=== PATIENT | male | born 1945 | race Caucasian/White ===

== ENCOUNTER 2016-10-27 09:20 | Emergency (ER) | payer OTHER, MEDICARE ==
[~2016-10-27] VITALS: Ht 177.8 cm; Wt 104.4 kg
[~2016-10-27 09:20] MED LIST: CMDUNK PO; METO-157 PO; ONDA8TAB6 PO; PRLSR20 PO; PROM25TA PO
[2016-10-27 09:22] VITALS: TEMP 36.7; Ht 177.8 cm; Wt 104.4 kg
[2016-10-27 09:54] LABS: BASO % 0.1 %; BASO ABS # 0.01 K/uL (0-0.2); COMPLETE YES; EOS % 0.2 %; HEMATOCRIT 42.5 % (42-52); IG% 0.2 %; LYMPH % 7.7 %; LYMPH ABS # 0.69 K/uL (1.2-3.4); MEAN CELL VOLUME 98.2 fL (80-100); MEAN CORPUSCULAR HGB CONC 33.6 g/dl (32-36); MEAN PLATELET VOLUME 10.4 fL (7.4-10.4); MONO % 7.5 %; NEUT % 84.3 %; PLATELET COUNT 225 K/uL (130-400); RED BLOOD COUNT 4.33 M/uL (4.7-6.1); WHITE BLOOD COUNT 8.95 K/uL (4.8-10.8)
[2016-10-27] MEDS ORDERED: SUCR1TAB29 PO (10:01)
[2016-10-27] MEDS ORDERED: BACL10TA PO (10:01)
[2016-10-27] MEDS ORDERED: METH4PAK PO (10:01)
[2016-10-27] MEDS ORDERED: TRAM-10 PO (10:01)
--- NOTE | 2016-10-27 10:23 | DIAGNOSTIC IMAGING REPORT ---
FLUOROSCOPIC IMAGES OF THE LUMBAR SPINE CLINICAL HISTORY: Lower back pain. COMPARISON: None FLUOROSCOPY TIME: FINDINGS: Abdominal surgical clips are incidentally noted. The bowel gas pattern is normal. There is a moderate amount stool within the ascending and transverse colon. Note is made of a moderate compression fracture of the superior endplate of L3 with 40% loss of vertebral body height anteriorly. This fracture is age indeterminate. No additional compression fractures are present. Moderate multilevel degenerative disc disease and facet arthrosis of the lumbar spine is present. There is minimal loss of height of the superior endplate of L4. IMPRESSION: 1. Age indeterminate moderate compression fracture of L3 with 40% loss of vertebral body height. 2. Moderate multilevel degenerative disc disease and facet arthrosis. 3. Minimal loss of height of the superior endplate of L4. Electronically signed by: Serge Rivera M.D. 10/27/2016 10:21 AM Dictated Date/Time: 10/27/2016 10:19 AM
[2016-10-27 10:24] LABS: BUN/CREATININE RATIO 19.8 (10-20); CALCIUM 8.8 mg/dl (8.5-10.1); CREATININE 1.1 mg/dl (0.60-1.40)
[2016-10-27 10:38] LABS: URINE APPEARANCE CLEAR (CLEAR); URINE BILIRUBIN NEG (NEG); URINE COLOR DK YELLOW; URINE NITRITE NEG (NEG); URINE SPECIFIC GRAVITY 1.027 (1.000-1.030); UROBILINOGEN NEG (NEG); ZZUR CULT IF INDIC CLEAN CATCH NO
[2016-10-27 10:40] LABS: MANUAL MICROSCOPIC REQUIRED? NO; REVIEW REQ? NO
--- NOTE | 2016-10-27 11:28 | DIAGNOSTIC IMAGING REPORT ---
RENAL ULTRASOUND CLINICAL HISTORY: Right flank pain. COMPARISON STUDY: None. TECHNIQUE: Sonography of the kidneys and the urinary bladder was performed. FINDINGS: The right kidney measures 13.3 x 7.2 x 6.8 cm and the left measures 13.2 x 6.2 x 5.6 cm. There is suspected mild right hydronephrosis. Parapelvic cysts could appear similar but are considered less likely. There is a probable 7 mm calculus within lower pole of the right kidney. No ureteral calculi are identified although these may be occult by sonography. There are tubular anechoic structures with the left renal sinus which favor parapelvic cysts. Neither ureteral jet was identified. IMPRESSION: 1. Probable mild right hydronephrosis. Parapelvic cysts could appear similar but are considered less likely. 2. Suspected left-sided parapelvic cysts. 3. Probable 7 mm right renal calculus. Electronically signed by: Serge Rivera M.D. 10/27/2016 11:27 AM Dictated Date/Time: 10/27/2016 11:24 AM
--- NOTE | 2016-10-27 12:15 | DIAGNOSTIC IMAGING REPORT ---
CT OF THE ABDOMEN AND PELVIS WITHOUT CONTRAST CLINICAL HISTORY: Right flank pain. L3 fracture COMPARISON STUDY: Renal ultrasound performed earlier today. TECHNIQUE: Axial images of the abdomen and pelvis were obtained without IV contrast. Images were reviewed in the axial, sagittal, and coronal planes. FINDINGS: Lung bases are clear. Pneumobilia is noted. This is related to Whipple procedure. Expected postoperative findings are noted but are suboptimally assessed on this unenhanced exam. Unenhanced images of the spleen and adrenal glands are normal. There is moderate right hydroureteronephrosis due to a 7 mm calculus at the right ureterovesical junction. A few calculi within the lower pole of the right kidney measure up to 9 mm. There are left-sided parapelvic cysts. There is no evidence for a bowel obstruction. Of note, there are multiple enlarged pelvic lymph nodes, including a left iliac node that measures 3.9 x 3.2 cm. An index right iliac node measures 1.8 cm in short axis diameter. A left pelvic sidewall lymph node measures 4.4 x 2.9 cm. No suspicious osseous lesions are identified. There is no evidence for a bowel obstruction. IMPRESSION: 1. 7 mm right ureterovesical junction calculus which results in moderate right hydroureteronephrosis. Right-sided nephrolithiasis. 2. Numerous moderately enlarged pelvic lymph nodes which are highly suggestive of a neoplastic process. Differential considerations include metastatic disease such as prostate carcinoma. Lymphoma could appear similar. 3. Expected findings following Whipple procedure. Pneumobilia. 4. Moderate L3 compression fracture which is likely old. Electronically signed by: Serge Rivera M.D. 10/27/2016 12:13 PM Dictated Date/Time: 10/27/2016 11:53 AM
[2016-10-27] MEDS ORDERED: CIPROFLOXACIN 500 MG TAB PO STA (13:14)
[2016-10-27] MEDS ORDERED: TAMS0.4C38 PO (13:19)
[2016-10-27] MEDS ORDERED: OXYC1TAB3 PO ×2 (13:19→13:50)
[2016-10-27] MEDS ORDERED: CIPR-255 PO (13:19)
[2016-10-27 13:37] VITALS: BP 138/82; PULSE 67; O2SAT 94
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
== END 2016-10-27 13:38 | disposition home or self-care (01) ==
LOC: C.EDB 09:22
DX: N20.0 Calculus of kidney (principal); Z85.07 Personal history of malignant neoplasm of pancreas; Z87.891 Personal history of nicotine dependence; Z79.899 Other long term (current) drug therapy; Z88.6 Allergy status to analgesic agent; Z88.8 Allergy status to other drugs, medicaments and biological substances; Z83.3 Family history of diabetes mellitus; Z80.9 Family history of malignant neoplasm, unspecified; Z83.79 Family history of other diseases of the digestive system

== ENCOUNTER 2020-12-27 00:31 | Inpatient (IN) ==
[2020-12-27] MEDS ORDERED: FUROSEMIDE 40 MG/4 ML VIAL IV STA (00:51)
[2020-12-27 01:39] LABS: Partial Thromboplastin Ratio 1.1; Partial Thromboplastin Time 30.2 Seconds (21.0-31.0); Prothrombin Time 10.5 Seconds (9.0-12.0)
[2020-12-27 01:45] LABS: Appearance Urine Clear (Clear); Bacteria Urine Automated Negative (Negative); Bilirubin Urine Negative (Negative); Blood Urine 3+ (Negative); Cast Urine Automated 0 /lpf (0-5); Color Urine Yellow; Glucose Urine UA 3+ (Negative); Ketones Urine 1+ (Negative); Leukocyte Esterase Urine Negative (Negative); Nitrite Urine Negative (Negative); Protein Urine Negative (Negative); RBC Urine Automated >30 /hpf (0-4); Specific Gravity Urine 1.022 (1.000-1.030); Urobilinogen Urine Negative (Negative); pH Urine 6.5 (4.5-7.5)
[2020-12-27 01:46] LABS: Hematocrit (blood only) 42.4 % (42-52); Hemoglobin 14.2 g/dL (14.0-18.0); Mean Corpuscular Hemoglobin 33.3 pg (25-34); Mean Corpuscular Hgb Conc 33.5 g/dL (32-36); Mean Corpuscular Volume 99.3 fL (80-100); Mean Platelet Volume 12.8 fL (7.4-10.4); Platelet Count 80 K/uL (130-400); RDW Coefficient of Variation 15.3 % (11.5-14.5); RDW Standard Deviation 55.9 fL (36.4-46.3); Red Blood Count 4.27 M/uL (4.7-6.1); White Blood Count 3.38 K/uL (4.8-10.8)
[2020-12-27 01:47] LABS: Alanine Aminotransferase 41 U/L (12-78); Albumin Level 3.6 gm/dl (3.4-5.0); Aspartate Aminotransferase 38 U/L (15-37); BUN Creatinine Ratio 15.8 (10-20); Blood Urea Nitrogen 15 mg/dl (7-18); Calcium 8.5 mg/dl (8.5-10.1); Carbon Dioxide 28 mmol/L (21-32); Chloride 106 mmol/L (98-107); Creatinine Clr Calc Pharmacy 84.7 ml/min; Est GFR (African American) 94.6 ml/min; Est GFR (Non-African American) 81.6 ml/min; Glucose 149 mg/dl (70-99); Magnesium 1.9 mg/dl (1.8-2.4); Potassium 3.8 mmol/L (3.5-5.1); Sodium 138 mmol/L (136-145)
[2020-12-27 01:49] LABS: Albumin Globulin Ratio 1.1 (0.9-2); Alkaline Phosphatase 205 U/L (45-117); Bilirubin,Total 0.7 mg/dl (0.2-1); Globulin 3.2 gm/dl (2.5-4.0); NT Pro B Type Natriuretic Pept 665 pg/ml (0-900); Total Protein 6.8 gm/dl (6.4-8.2); Troponin I < 0.015 ng/ml (0-0.045)
[2020-12-27 01:50] LABS: Basophils # (auto) 0.02 K/uL (0-0.2); Basophils % (auto) 0.6 %; Dohle Bodies 1+; Echinocytes 1+; Eosinophils # (auto) 0.11 K/uL (0-0.5); Eosinophils % (auto) 3.3 %; Immature Granulocytes # (auto) 0.01 K/uL (0.00-0.02); Immature Granulocytes % (auto) 0.3 %; Lymphocytes # (auto) 0.45 K/uL (1.2-3.4); Lymphocytes % (auto) 13.3 %; Monocytes % (auto) 5.9 %; Neutrophils # (auto) 2.59 K/uL (1.4-6.5); Neutrophils % (auto) 76.6 %; Ovalocytes 1+; Platelet Estimate Decreased (Normal)
--- NOTE | 2020-12-27 05:53 | Emergency Department Note ---
History of Present Illness General Chief complaint: Sinus Congestion/Pressure Stated complaint: SINUS CONGESTION INTO CHEST Time Seen by Provider: 12/27/20 00:38 Source: patient, family (Son at the bedside) and RN notes reviewed Mode of arrival: ambulatory Limitations: no limitations History of Present Illness Provider complaint: Sinus pressure, cough This patient is a 75-year-old male who presents emergency department with complaints of sinus congestion, cough and shortness of breath. Patient states he believes he has an upper respiratory infection that is causing his symptoms due to postnasal drip. He denies any fever or chest pain. He admits to sputum production. Patient is anticoagulated on Eliquis due to history of paroxysmal atrial fibrillation. He does have a history of an aortic valve replacement and takes torsemide daily. Patient denies missing any of his medications. Home Medications Medication Instructions Recorded Confirmed Type metoclopramide HCl 10 mg tablet 10 mg PO DAILY PRN 01/20/19 12/27/20 History metoprolol tartrate 25 mg tablet 25 mg PO BID 01/20/19 12/27/20 History omeprazole 20 mg capsule,delayed 20 mg PO DAILY 01/20/19 12/27/20 History release acetaminophen 500 mg tablet 500 mg PO Q4H PRN MDD 3 GRAMS/24 12/27/20 12/27/20 History (Tylenol Extra Strength) HOURS apixaban 5 mg tablet (Eliquis) 5 mg PO BID 12/27/20 12/27/20 History calcium carb,cit ER 600 mg-vit D3 1 tab PO DAILY 12/27/20 12/27/20 History 12.5 mcg (500 unit) tablet,ext.rel (Citracal-D3 Slow Release) chlorhexidine gluconate 0.12 % 15 ml PO BID 12/27/20 12/27/20 History mouthwash folic acid 1 mg tablet 1 mg PO DAILY 12/27/20 12/27/20 History glucosamine sulfate 500 mg tablet 1,000 mg PO DAILY 12/27/20 12/27/20 History (Glucosamine) lenalidomide 10 mg capsule 10 mg PO DAILY 12/27/20 12/27/20 History (Revlimid) metformin 500 mg tablet,extended 1,000 mg PO DAILY 12/27/20 12/27/20 History release 24 hr pentoxifylline 400 mg 400 mg PO BID 12/27/20 12/27/20 History tablet,extended release spironolactone 25 mg tablet 25 mg PO DAILY 12/27/20 12/27/20 History torsemide 10 mg tablet 20 mg PO DAILY 12/27/20 12/27/20 History tramadol 50 mg tablet 50 mg PO Q6H PRN 12/27/20 12/27/20 History vitamin E 200 unit capsule 400 unit PO BID 12/27/20 12/27/20 History doxycycline hyclate 100 mg capsule 100 mg PO BID #10 cap 12/29/20 Rx fluticasone propionate 50 2 spray NA DAILY #16 g 12/29/20 Rx mcg/actuation nasal spray,suspension guaifenesin 600 mg tablet, 1,200 mg PO Q12 #14 tab 12/29/20 Rx extended release 12 hr (Mucinex) ipratropium bromide 0.02 % 0.5 mg INHALATION TID 7 Days #52.5 12/29/20 Rx solution for inhalation ml levalbuterol HCl 1.25 mg/0.5 mL 1.25 mg INHALATION TID 7 Days 12/29/20 Rx solution for nebulization #10.5 ea Allergies Allergy/AdvReac Type Severity Reaction Status Date / Time aspirin Allergy Severe HIVES Unverified 01/20/19 14:42 NSAIDS (Non-Steroidal Allergy Severe HIVES Unverified 01/20/19 14:42 Anti-Inflamma Iodine and Iodide Containing AdvReac Mild Verified 01/20/19 14:42 Produc Past Med/Surg History Medical History (Updated 01/03/21 @ 21:14 by Ariane Tran MD) Compression fracture of L3 lumbar vertebra ASHBY (dyspnea on exertion) Enlarged lymph nodes Hemolytic anemia Kidney stone Multiple myeloma PAF (paroxysmal atrial fibrillation) Pancreatic cancer Peripheral edema Tachy-holly syndrome URI (upper respiratory infection) Surgical History (Updated 01/03/21 @ 21:09 by Ariane Tran MD) S/P AVR Family History Other Family history non-contributory Social History Smoking Status: Former smoker Second Hand Exposure: No; Hx Alcohol Use: No Hx Substance Use: No Preferred Language: [place] Communication Ability: Effective Orthotic Aide Required: No Beliefs That Will Affect Care: Yazidism marital status: Current Living Situation: Spouse Feels Safe at Home: Yes Assistive Devices: None Review of Systems See HPI for pertinent positives & negatives. and A total of 10 systems reviewed and were otherwise negative Physical Exam Vital Signs Vital Signs - 24 hr 12/27/20 00:32 12/27/20 01:40 12/27/20 04:24 Temperature 37.1 C Temperature Source Temporal Artery Scan Pulse Rate 86 Respiratory Rate 18 Blood Pressure 143/75 H Blood Pressure Mean 97 Pulse Oximetry 92 96 95 Oxygen Delivery Method Room Air Room Air Room Air Sepsis Recent Fever Within 48 Hours No Sepsis New/Unexplained Change in Mental Status No Sepsis Action Taken by Nursing No Action Required Vital signs reviewed. General: Generally well-appearing 75-year-old male sitting up in the bedside, in no significant distress. HEENT: No scleral icterus, PERRLA, neck supple. Atraumatic. Cardiovascular: Regular rate and rhythm, systolic ejection murmur, occasional ectopy. Pulmonary: Clear to auscultation bilaterally, moist cough with slightly increased work of breathing. Abdomen: Soft, nontender, nondistended, positive bowel sounds. Musculoskeletal: Atraumatic, mild peripheral edema. Neurologic: Patient awake alert and oriented x 3 Skin: Warm, dry, no rash Course Administered Medications Discontinued Medications Acetaminophen (Acetaminophen 325 Mg Tab) 650 mg PO Q4H PRN PRN Reason: Pain or Fever Stop: 01/26/21 07:38 Last Admin: 12/27/20 18:35 Dose: 650 mg Documented by: [id number] Apixaban (Apixaban 5 Mg Tablet) 5 mg PO BID SONYA Stop: 01/26/21 08:59 Last Admin: 12/28/20 07:39 Dose: 5 mg Documented by: [id number] Admin: 12/27/20 20:01 Dose: 5 mg Documented by: [id number] Admin: 12/27/20 08:44 Dose: 5 mg Documented by: [id number] Bupivacaine HCl (Bupivacaine 0.25% 30 Ml Vial) Confirm Administered Dose 30 ml .ROUTE .STK-MED ONE Stop: 12/29/20 06:52 Last Admin: 12/29/20 10:15 Dose: 30 ml Documented by: [id number] Cefazolin Sodium (Cefazolin 250 Mg/Ml 1 Gm Vial) Confirm Administered Dose 2,000 mg .ROUTE .STK-MED ONE Stop: 12/29/20 08:54 Last Admin: 12/29/20 10:15 Dose: 2,000 mg Documented by: [id number] Chlorhexidine Gluconate (Chlorhexidine Gluconate 0.12% 480 Ml) 15 ml MT BID [facility] Stop: 01/26/21 08:59 Last Admin: 12/29/20 11:19 Dose: 15 ml Documented by: [id number] Admin: 12/28/20 20:59 Dose: 15 ml Documented by: [id number] Admin: 12/28/20 07:47 Dose: 15 ml Documented by: [id number] Admin: 12/27/20 20:00 Dose: 15 ml Documented by: [id number] Admin: 12/27/20 08:42 Dose: 15 ml Documented by: [id number] Diphenhydramine HCl (Diphenhydramine Capsule 25 Mg Cap) 50 mg PO PREOP [facility] Stop: 12/29/20 18:00 Last Admin: 12/29/20 07:58 Dose: 50 mg Documented by: [id number] Doxycycline Hyclate (Doxycycline Hyclate 100 Mg Cap) 100 mg PO BID [facility] Stop: 01/06/21 08:59 Last Admin: 12/29/20 11:20 Dose: 100 mg Documented by: [id number] Admin: 12/28/20 21:27 Dose: 100 mg Documented by: [id number] Admin: 12/28/20 07:41 Dose: 100 mg Documented by: [id number] Admin: 12/27/20 20:02 Dose: 100 mg Documented by: [id number] Admin: 12/27/20 08:44 Dose: 100 mg Documented by: [id number] Fentanyl Citrate (Fentanyl Citrate 100 Mcg/2 Ml Vial) Confirm Administered Dose 100 mcg .ROUTE .STK-MED ONE Stop: 12/29/20 08:54 Last Increment: 12/29/20 10:15 Dose: 75 mcg Documented by: [id number] Fluticasone Propionate (Fluticasone Propionate Na Spr 16 Gm Btl) 2 sprays NA DAILY [facility] Stop: 01/26/21 15:14 Last Admin: 12/29/20 11:21 Dose: 2 sprays Documented by: [id number] Admin: 12/28/20 07:46 Dose: 2 sprays Documented by: [id number] Admin: 12/27/20 16:12 Dose: 2 sprays Documented by: [id number] Folic Acid (Folic Acid 1 Mg Tab) 1 mg PO DAILY [facility] Stop: 01/26/21 08:59 Last Admin: 12/29/20 11:22 Dose: 1 mg Documented by: [id number] Admin: 12/28/20 07:43 Dose: 1 mg Documented by: [id number] Admin: 12/27/20 08:44 Dose: 1 mg Documented by: [id number] Furosemide (Furosemide 40 Mg/4 Ml Vial) 40 mg IV NOW STA Stop: 12/27/20 00:52 Last Admin: 12/27/20 01:19 Dose: 40 mg Documented by: [id number] Glucosamine Sulfate (Glucosamine Sulfate 500 Mg Cap) 1,000 mg PO DAILY [facility] Stop: 01/26/21 08:59 Last Admin: 12/29/20 11:22 Dose: 1,000 mg Documented by: [id number] Admin: 12/28/20 07:43 Dose: 1,000 mg Documented by: [id number] Admin: 12/27/20 08:43 Dose: 1,000 mg Documented by: [id number] Guaifenesin (Guaifenesin 600 Mg Tabcr) 1,200 mg PO Q12 [facility] Stop: 01/26/21 20:59 Last Admin: 12/29/20 11:23 Dose: 1,200 mg Documented by: [id number] Admin: 12/28/20 21:27 Dose: 1,200 mg Documented by: [id number] Admin: 12/28/20 07:41 Dose: 1,200 mg Documented by: [id number] Admin: 12/27/20 20:02 Dose: 1,200 mg Documented by: [id number] Furosemide 40 mg/ Syringe 4 mls @ 4 mls/min IV DAILY [facility] Stop: 01/26/21 08:59 Last Admin: 12/28/20 07:46 Dose: 4 mls/min Documented by: [id number] Admin: 12/27/20 08:48 Dose: 4 mls/min Documented by: [id number] Ceftriaxone Sodium 2,000 mg/ (Dextrose) 70 mls @ 100 mls/hr IV Q24H SONYA; Protocol Stop: 01/04/21 09:59 Last Infusion: 12/29/20 12:16 Dose: 0 mls/hr Documented by: [id number] Admin: 12/29/20 11:26 Dose: 100 mls/hr Documented by: [id number] Infusion: 12/28/20 11:02 Dose: 0 mls/hr Documented by: [id number] Admin: 12/28/20 10:20 Dose: 100 mls/hr Documented by: [id number] Insulin Aspart (Insulin Aspart 100 Units/Ml 3 Ml Pen) 0 units SC ACHS [facility] Stop: 01/26/21 07:59 Last Admin: 12/28/20 22:59 Dose: Not Given Documented by: [id number] Admin: 12/28/20 08:50 Dose: 3 units Documented by: [id number] Cosigned by: [id number] Admin: 12/27/20 20:56 Dose: 1 units Documented by: [id number] Cosigned by: [id number] Admin: 12/27/20 17:08 Dose: 4 units Documented by: [id number] Cosigned by: [id number] Admin: 12/27/20 12:13 Dose: 2 units Documented by: [id number] Cosigned by: [id number] Admin: 12/27/20 08:43 Dose: 4 units Documented by: [id number] Cosigned by: [id number] Insulin Aspart (Insulin Aspart 100 Units/Ml 3 Ml Pen) 0 units SC [facility] Stop: 12/29/20 23:59 Last Admin: 12/29/20 12:33 Dose: 11 units Documented by: [id number] Cosigned by: [id number] Admin: 12/29/20 07:59 Dose: 3 units Documented by: [id number] Cosigned by: [id number] Admin: 12/28/20 20:58 Dose: 6 units Documented by: [id number] Cosigned by: [id number] Admin: 12/28/20 16:54 Dose: Not Given Documented by: [id number] Cosigned by: [id number] Insulin Aspart (Insulin Aspart 100 Units/Ml 3 Ml Pen) 0 units SC .EXTRA DOSE ONE Stop: 12/28/20 11:31 Last Admin: 12/28/20 12:47 Dose: 12 units Documented by: [id number] Cosigned by: [id number] Insulin Aspart (Insulin Aspart 100 Units/Ml 3 Ml Pen) 0 units SC 0000,0400 [facility] Stop: 12/29/20 04:01 Last Admin: 12/29/20 04:10 Dose: 2 units Documented by: [id number] Cosigned by: [id number] Admin: 12/29/20 00:17 Dose: 6 units Documented by: [id number] Cosigned by: [id number] Insulin Glargine (Insulin Glargine Solostar 100 Units/Ml 3 Ml Pen) 8 units SC .EXTRA DOSE ONE Stop: 12/28/20 11:31 Last Admin: 12/28/20 12:54 Dose: 8 units Documented by: [id number] Cosigned by: [id number] Insulin Glargine (Insulin Glargine Solostar 100 Units/Ml 3 Ml Pen) 22 units SC ONE ONE Stop: 12/28/20 18:01 Last Admin: 12/28/20 18:04 Dose: 22 units Documented by: [id number] Cosigned by: [id number] Insulin Glargine (Insulin Glargine Solostar 100 Units/Ml 3 Ml Pen) 15 units SC BID [facility] Stop: 01/28/21 08:59 Last Admin: 12/29/20 08:00 Dose: 15 units Documented by: [id number] Cosigned by: [id number] Ipratropium [place] (Ipratropium [place] Neb Soln 0.02% 2.5 Ml Vial) 0.5 mg INH Q6R [facility] Stop: 01/26/21 15:14 Last Admin: 12/29/20 12:59 Dose: 0.5 mg Documented by: [id number] Admin: 12/29/20 07:00 Dose: 0.5 mg Documented by: [id number] Admin: 12/29/20 01:15 Dose: 0.5 mg Documented by: [id number] Admin: 12/28/20 18:58 Dose: 0.5 mg Documented by: [id number] Admin: 12/28/20 13:12 Dose: 0.5 mg Documented by: [id number] Admin: 12/28/20 07:08 Dose: 0.5 mg Documented by: [id number] Admin: 12/28/20 01:10 Dose: 0.5 mg Documented by: [id number] Admin: 12/27/20 18:07 Dose: 0.5 mg Documented by: [id number] Admin: 12/27/20 15:40 Dose: 0.5 mg Documented by: [id number] Lenalidomide (Lenalidomide 10 Mg Cap) 1 ea PO DAILY [facility]ON[facility]; Protocol Stop: 01/26/21 08:59 Last Admin: 12/29/20 11:27 Dose: 1 ea Documented by: [id number] Cosigned by: [id number] Admin: 12/28/20 10:45 Dose: 1 ea Documented by: [id number] Cosigned by: [id number] Admin: 12/27/20 09:03 Dose: 1 ea Documented by: [id number] Cosigned by: [id number] Levalbuterol HCl (Levalbuterol 1.25mg/0.5ml Neb) 1.25 mg INH Q6R [facility] Stop: 01/26/21 15:14 Last Admin: 12/29/20 12:59 Dose: 1.25 mg Documented by: [id number] Admin: 12/29/20 07:00 Dose: 1.25 mg Documented by: [id number] Admin: 12/29/20 01:15 Dose: 1.25 mg Documented by: [id number] Admin: 12/28/20 18:58 Dose: 1.25 mg Documented by: [id number] Admin: 12/28/20 13:13 Dose: 1.25 mg Documented by: [id number] Admin: 12/28/20 07:08 Dose: 1.25 mg Documented by: [id number] Admin: 12/28/20 01:10 Dose: 1.25 mg Documented by: [id number] Admin: 12/27/20 18:07 Dose: 1.25 mg Documented by: [id number] Admin: 12/27/20 15:40 Dose: 1.25 mg Documented by: [id number] Lidocaine HCl (Lidocaine 1% Local 20 Ml Vial) Confirm Administered Dose 20 ml .ROUTE .STK-MED ONE Stop: 12/29/20 06:52 Last Admin: 12/29/20 10:15 Dose: 20 ml Documented by: [id number] Metoprolol Tartrate (Metoprolol Tartrate 25 Mg Tab) 25 mg PO BID [facility] Stop: 01/26/21 08:59 Last Admin: 12/27/20 08:43 Dose: 25 mg Documented by: [id number] Midazolam HCl (Midazolam Hcl 5 Mg/Ml 1 Ml Vial) Confirm Administered Dose 5 mg .ROUTE .STK-MED ONE Stop: 12/29/20 08:53 Last Increment: 12/29/20 10:15 Dose: 3 mg Documented by: [id number] Multivitamins/Minerals (Calcium 600mg + Vit D 400 Iu Tab) 1 tab PO DAILY [facility] Stop: 01/26/21 08:59 Last Admin: 12/29/20 11:18 Dose: 1 tab Documented by: [id number] Admin: 12/28/20 07:44 Dose: 1 tab Documented by: [id number] Admin: 12/27/20 08:44 Dose: 1 tab Documented by: [id number] Pantoprazole Sodium (Pantoprazole 40 Mg Tab) 40 mg PO DAILY [facility]; Protocol Stop: 01/26/21 08:59 Last Admin: 12/29/20 11:23 Dose: 40 mg Documented by: [id number] Admin: 12/28/20 07:44 Dose: 40 mg Documented by: [id number] Admin: 12/27/20 08:43 Dose: 40 mg Documented by: [id number] Pentoxifylline (Pentoxifylline 400mg Ext Rel Tab) 400 mg PO BID [facility] Stop: 01/26/21 08:59 Last Admin: 12/29/20 11:23 Dose: 400 mg Documented by: [id number] Admin: 12/28/20 21:28 Dose: 400 mg Documented by: [id number] Admin: 12/28/20 07:42 Dose: 400 mg Documented by: [id number] Admin: 12/27/20 20:02 Dose: 400 mg Documented by: [id number] Admin: 12/27/20 08:43 Dose: 400 mg Documented by: [id number] Potassium Chloride (Potassium Chloride Crtab 20 Meq Tabcr) 40 meq PO NOW STA Stop: 12/27/20 23:52 Last Admin: 12/28/20 00:57 Dose: 40 meq Documented by: [id number] Potassium Chloride (Potassium Chloride Crtab 20 Meq Tabcr) 40 meq PO NOW STA Stop: 12/28/20 10:23 Last Admin: 12/28/20 10:52 Dose: 40 meq Documented by: [id number] Prednisone (Prednisone 50 Mg Tab) 50 mg PO 1800 [facility] Stop: 12/28/20 18:01 Last Admin: 12/28/20 18:04 Dose: 50 mg Documented by: [id number] Prednisone (Prednisone 50 Mg Tab) 50 mg PO Q8H [facility] Stop: 12/29/20 10:01 Last Admin: 12/29/20 11:24 Dose: 50 mg Documented by: [id number] Admin: 12/29/20 02:17 Dose: 50 mg Documented by: [id number] Sodium Chloride (Sodium Chloride 0.9% Inj 10 Ml Vial) Confirm Administered Dose 20 ml .ROUTE .STK-MED ONE Stop: 12/29/20 09:47 Last Admin: 12/29/20 10:15 Dose: 20 ml Documented by: [id number] Spironolactone (Spironolactone 25 Mg Tab) 25 mg PO DAILY [facility] Stop: 01/26/21 08:59 Last Admin: 12/29/20 11:23 Dose: 25 mg Documented by: [id number] Admin: 12/28/20 07:45 Dose: 25 mg Documented by: [id number] Admin: 12/27/20 08:43 Dose: 25 mg Documented by: [id number] Sterile Water (Water, Sterile For Inj 10 Ml Vial) Confirm Administered Dose 10 ml .ROUTE .STK-MED ONE Stop: 12/29/20 06:52 Last Admin: 12/29/20 10:15 Dose: 10 ml Documented by: [id number] Torsemide (Torsemide 10 Mg Tab) 20 mg PO QAM [facility] Stop: 01/27/21 08:59 Last Admin: 12/29/20 11:25 Dose: 20 mg Documented by: [id number] Admin: 12/28/20 10:45 Dose: 20 mg Documented by: [id number] Vancomycin HCl (Vancomycin Hcl 1000mg/20ml Vial) Confirm Administered Dose 50 mg .ROUTE .STK-MED ONE Stop: 12/29/20 06:52 Last Admin: 12/29/20 10:15 Dose: 50 mg Documented by: [id number] Vancomycin HCl (Vancomycin Hcl 1000mg/20ml Vial) Confirm Administered Dose 50 mg .ROUTE .STK-MED ONE Stop: 12/29/20 09:47 Last Admin: 12/29/20 10:15 Dose: 50 mg Documented by: [id number] Vitamin E (Tocopheryl, Dl-Alpha 100 Units Cap) 400 units PO BID [facility] Stop: 01/26/21 08:59 Last Admin: 12/29/20 11:19 Dose: 400 units Documented by: [id number] Admin: 12/28/20 21:27 Dose: 400 units Documented by: [id number] Admin: 12/28/20 07:40 Dose: 400 units Documented by: [id number] Admin: 12/27/20 20:01 Dose: 400 units Documented by: [id number] Admin: 12/27/20 08:43 Dose: 400 units Documented by: [id number] Medical Decision Making Differential Diagnosis Reactive airway disease, pneumonia, pneumothorax, COPD, CHF, infections, cardiac ischemia, pulmonary embolism, musculoskeletal, gastrointestinal, as well as ot her pathologies. Medical Records Attestation: I reviewed the patient's medical records. Home Medications Current Medication List: was personally reviewed by me Laboratory Data Attestation: I reviewed the patient's lab results. Result diagrams: 12/29/20 06:15 12/29/20 06:15 Lab Results 12/27/20 12/27/20 12/27/20 Range/Units 01:13 01:13 01:13 WBC 3.38 L (4.8-10.8) K/uL RBC 4.27 L (4.7-6.1) M/uL Hgb 14.2 (14.0-18.0) g/dL Hct 42.4 (42-52) % MCV 99.3 (80-100) fL MCH 33.3 (25-34) pg MCHC 33.5 (32-36) g/dL RDW Std Deviation 55.9 H (36.4-46.3) fL RDW Coeff of Jim 15.3 H (11.5-14.5) % Plt Count 80 L (130-400) K/uL MPV 12.8 H (7.4-10.4) fL Immature Gran % (Auto) 0.3 % Neut % (Auto) 76.6 % Lymph % (Auto) 13.3 % Putnam % (Auto) 5.9 % Eos % (Auto) 3.3 % Baso % (Auto) 0.6 % Neut # (Auto) 2.59 (1.4-6.5) K/uL Lymph # (Auto) 0.45 L (1.2-3.4) K/uL [place] # (Auto) 0.20 (0.11-0.59) K/uL Eos # (Auto) 0.11 (0-0.5) K/uL Baso # (Auto) 0.02 (0-0.2) K/uL Immature Gran # (Auto) 0.01 (0.00-0.02) K/uL Dohle Bodies 1+ Platelet Estimate Decreased L (Normal) Ovalocytes 1+ Echinocytes 1+ PT 10.5 (9.0-12.0) Seconds INR 1.0 (0.9-1.1) APTT 30.2 (21.0-31.0) Seconds PTT Ratio 1.1 Sodium 138 (136-145) mmol/L Potassium 3.8 (3.5-5.1) mmol/L Chloride 106 (98-107) mmol/L Carbon Dioxide 28 (21-32) mmol/L Anion Gap 4.0 (3-11) BUN 15 (7-18) mg/dl Creatinine 0.92 (0.6-1.4) mg/dl Est Cr Clr Drug Dosing 84.7 ml/min Est GFR ( Amer) 94.6 ml/min Est GFR (Non-Af Amer) 81.6 ml/min BUN/Creatinine Ratio 15.8 (10-20) Glucose 149 H (70-99) mg/dl Calcium 8.5 (8.5-10.1) mg/dl Magnesium 1.9 (1.8-2.4) mg/dl Total Bilirubin 0.7 (0.2-1) mg/dl AST 38 H (15-37) U/L ALT 41 (12-78) U/L Alkaline Phosphatase 205 H (45-117) U/L Troponin I < 0.015 (0-0.045) ng/ml NT-Pro-B Natriuret Pep 665 (0-900) pg/ml Total Protein 6.8 (6.4-8.2) gm/dl Albumin 3.6 (3.4-5.0) gm/dl Globulin 3.2 (2.5-4.0) gm/dl Albumin/Globulin Ratio 1.1 (0.9-2) Specimen Hemolysis Urine Color Urine Appearance (Clear) Urine pH (4.5-7.5) Ur Specific [place] (1.000-1.030) Urine Protein (Negative) Urine Glucose (UA) (Negative) Urine Ketones (Negative) Urine Blood (Negative) Urine Nitrite (Negative) Urine Bilirubin (Negative) Urine Urobilinogen (Negative) Ur Leukocyte Esterase (Negative) Urine WBC (Auto) (0-5) /hpf Urine RBC (Auto) (0-4) /hpf U Hyaline Cast (Auto) (0-5) /lpf U Epithel Cells (Auto) (0-5) /lpf Urine Bacteria (Auto) (Negative) COVID-19 Eval Order SARS-CoV-2 (PCR) (Negative) RSV (Molecular) (Negative) 12/27/20 12/27/20 12/27/20 Range/Units 01:13 01:13 01:13 WBC (4.8-10.8) K/uL RBC (4.7-6.1) M/uL Hgb (14.0-18.0) g/dL Hct (42-52) % MCV (80-100) fL MCH (25-34) pg MCHC (32-36) g/dL RDW Std Deviation (36.4-46.3) fL RDW Coeff of Jim (11.5-14.5) % Plt Count (130-400) K/uL MPV (7.4-10.4) fL Immature Gran % (Auto) % Neut % (Auto) % Lymph % (Auto) % [place] % (Auto) % Eos % (Auto) % Baso % (Auto) % Neut # (Auto) (1.4-6.5) K/uL Lymph # (Auto) (1.2-3.4) K/uL [place] # (Auto) (0.11-0.59) K/uL Eos # (Auto) (0-0.5) K/uL Baso # (Auto) (0-0.2) K/uL Immature Gran # (Auto) (0.00-0.02) K/uL Dohle Bodies Platelet Estimate (Normal) Ovalocytes Echinocytes PT (9.0-12.0) Seconds INR (0.9-1.1) APTT (21.0-31.0) Seconds PTT Ratio Sodium (136-145) mmol/L Potassium (3.5-5.1) mmol/L Chloride (98-107) mmol/L Carbon Dioxide (21-32) mmol/L Anion Gap (3-11) BUN (7-18) mg/dl Creatinine (0.6-1.4) mg/dl Est Cr Clr Drug Dosing ml/min Est GFR ( Amer) ml/min Est GFR (Non-Af Amer) ml/min BUN/Creatinine Ratio (10-20) Glucose (70-99) mg/dl Calcium (8.5-10.1) mg/dl Magnesium (1.8-2.4) mg/dl Total Bilirubin (0.2-1) mg/dl AST (15-37) U/L ALT (12-78) U/L Alkaline Phosphatase (45-117) U/L Troponin I (0-0.045) ng/ml NT-Pro-B Natriuret Pep (0-900) pg/ml Total Protein (6.4-8.2) gm/dl Albumin (3.4-5.0) gm/dl Globulin (2.5-4.0) gm/dl Albumin/Globulin Ratio (0.9-2) Specimen Hemolysis Urine Color Urine Appearance (Clear) Urine pH (4.5-7.5) Ur Specific [place] (1.000-1.030) Urine Protein (Negative) Urine Glucose (UA) (Negative) Urine Ketones (Negative) Urine Blood (Negative) Urine Nitrite (Negative) Urine Bilirubin (Negative) Urine Urobilinogen (Negative) Ur Leukocyte Esterase (Negative) Urine WBC (Auto) (0-5) /hpf Urine RBC (Auto) (0-4) /hpf U Hyaline Cast (Auto) (0-5) /lpf U Epithel Cells (Auto) (0-5) /lpf Urine Bacteria (Auto) (Negative) COVID-19 Eval Order Covid19 at [facility] SARS-CoV-2 (PCR) NEGATIVE (Negative) RSV (Molecular) Negative (Negative) 12/27/20 Range/Units 01:35 WBC (4.8-10.8) K/uL RBC (4.7-6.1) M/uL Hgb (14.0-18.0) g/dL Hct (42-52) % MCV (80-100) fL MCH (25-34) pg MCHC (32-36) g/dL RDW Std Deviation (36.4-46.3) fL RDW Coeff of Jim (11.5-14.5) % Plt Count (130-400) K/uL MPV (7.4-10.4) fL Immature Gran % (Auto) % Neut % (Auto) % Lymph % (Auto) % [place] % (Auto) % Eos % (Auto) % Baso % (Auto) % Neut # (Auto) (1.4-6.5) K/uL Lymph # (Auto) (1.2-3.4) K/uL [place] # (Auto) (0.11-0.59) K/uL Eos # (Auto) (0-0.5) K/uL Baso # (Auto) (0-0.2) K/uL Immature Gran # (Auto) (0.00-0.02) K/uL Dohle Bodies Platelet Estimate (Normal) Ovalocytes Echinocytes PT (9.0-12.0) Seconds INR (0.9-1.1) APTT (21.0-31.0) Seconds PTT Ratio Sodium (136-145) mmol/L Potassium (3.5-5.1) mmol/L Chloride (98-107) mmol/L Carbon Dioxide (21-32) mmol/L Anion Gap (3-11) BUN (7-18) mg/dl Creatinine (0.6-1.4) mg/dl Est Cr Clr Drug Dosing ml/min Est GFR ( Amer) ml/min Est GFR (Non-Af Amer) ml/min BUN/Creatinine Ratio (10-20) Glucose (70-99) mg/dl Calcium (8.5-10.1) mg/dl Magnesium (1.8-2.4) mg/dl Total Bilirubin (0.2-1) mg/dl AST (15-37) U/L ALT (12-78) U/L Alkaline Phosphatase (45-117) U/L Troponin I (0-0.045) ng/ml NT-Pro-B Natriuret Pep (0-900) pg/ml Total Protein (6.4-8.2) gm/dl Albumin (3.4-5.0) gm/dl Globulin (2.5-4.0) gm/dl Albumin/Globulin Ratio (0.9-2) Specimen Hemolysis Urine Color Yellow Urine Appearance Clear (Clear) Urine pH 6.5 (4.5-7.5) Ur Specific [place] 1.022 (1.000-1.030) Urine Protein Negative (Negative) Urine Glucose (UA) 3+ H (Negative) Urine Ketones 1+ H (Negative) Urine Blood 3+ H (Negative) Urine Nitrite Negative (Negative) Urine Bilirubin Negative (Negative) Urine Urobilinogen Negative (Negative) Ur Leukocyte Esterase Negative (Negative) Urine WBC (Auto) 1-5 (0-5) /hpf Urine RBC (Auto) >30 H (0-4) /hpf U Hyaline Cast (Auto) 0 (0-5) /lpf U Epithel Cells (Auto) 5-10 H (0-5) /lpf Urine Bacteria (Auto) Negative (Negative) COVID-19 Eval Order SARS-CoV-2 (PCR) (Negative) RSV (Molecular) (Negative) Imaging Data Radiologist's Impression: Chest X-Ray 12/27/20 00:52 XR chest 1V portable CLINICAL HISTORY: Dyspnea COMPARISON STUDY: Chest radiograph January 20, 2019. FINDINGS: Lung volumes are normal. There is no pneumothorax or pleural effusion. There are median sternotomy wires. There is mild cardiomegaly without evidence for pulmonary edema. There is no consolidation to suggest pneumonia. Old deformity of the posterior left seventh rib is unchanged since radiographs of January 20, 2019 18. There is hazy density which projects over the right lower lung. IMPRESSION: 1. No definite acute cardiopulmonary findings. Hazy density which projects over the right lower lung. This is likely related overlying soft tissues however follow-up PA and lateral chest radiographs are recommended. 2. Cardiomegaly without evidence for pulmonary edema. ACT 112: Negative or not required by law. Electronically signed by: Serge Rivera M.D. 12/27/2020 7:00 AM ECG Data Attestation: I personally reviewed and interpreted this ECG as follows: Indication: + SOB/dyspnea Rate (beats per minute): 86 Rhythm: + sinus with SA ECG Intervals/blocks: + First degree AV block, + Left posterior fascicular block, + Right Bundle branch block and + Prolonged QT ECG ST segments: + Normal ST segments Comparison ECG Date: from (01/20/2019) Change: the following changes noted (Right bundle branch block and left p osterior fascicular block are new) Blood Pressure Blood Pressure Findings: Normal blood pressure Blood Pressure Disposition: did not require urgent referral MDM Narrative This patient was evaluated and appeared to be in no significant distress. IV access was obtained and laboratory work was drawn. An order for cardiac monitoring was placed and the patient is noted to be in a sinus rhythm with a first-degree AV block at 86 bpm. Patient was noted to have a slightly increased work of breathing but chest x-ray revealed no significant pulmonary edema. Patient's most previous EKG was from 2019 and appears to have some new right bundle branch block and new left posterior fascicular block. Patient was given 40 mg of IV Lasix and did begin to diurese. Given the patient's multiple me dical issues including history of pancreatic cancer, multiple myeloma, prostate cancer, hemolytic anemia, aortic valve replacement, paroxysmal atrial fibrillation on anticoagulation with a new dyspnea, the hospitalist was consulted for further management. Patient is aware of the plan and agrees. Impression & Plan Acute dyspnea, Peripheral edema, S/P AVR, URI (upper respiratory infection) Discharge Plan Visit Data Chief Complaint: Sinus Congestion/Pressure Stated Complaint: SINUS CONGESTION INTO CHEST Discharge Problem: Acute dyspnea, Peripheral edema, S/P AVR, URI (upper respiratory infection) Patient Disposition: Admitted As Inpatient Discharge Instructions Interventions: ED Discharge Assessment Last Done: 12/27/20 07:00 Discharge Problem: URI (upper respiratory infection) Qualifiers: URI type: unspecified URI Qualified Code(s): J06.9 - Acute upper respiratory infection, unspecified
--- NOTE | 2020-12-27 07:02 | XRay Report ---
XR chest 1V portable CLINICAL HISTORY: Dyspnea COMPARISON STUDY: Chest radiograph January 20, 2019. FINDINGS: Lung volumes are normal. There is no pneumothorax or pleural effusion. There are median sotero rnotomy wires. There is mild cardiomegaly without evidence for pulmonary edema. There is no consolida tion to suggest pneumonia. Old deformity of the posterior left seventh rib is unchanged since radiogr aphs of January 20, 2019 18. There is hazy density which projects over the right lower lung. IMPRESSION: 1. No definite acute cardiopulmonary findings. Hazy density which projects over the right lower lung. This is likely related overlying soft tissues however follow-up PA and lateral chest radiographs are recommended. 2. Cardiomegaly without evidence for pulmonary edema. ACT 112: Negative or not required by law. Electronically signed by: Serge Rivera M.D. 12/27/2020 7:00 AM
--- NOTE | 2020-12-27 07:19 | History and Physical Report ---
DATE OF ADMISSION: 12/27/2020. CHIEF COMPLAINT: Cough and nasal drainage. HISTORY OF PRESENT ILLNESS: A 75-year-old male with past medical history significant for type 2 diabetes, history of pancreatic cancer, status post Whipple procedure in 2009, followed by chemotherapy and radiation therapy, history of prostate cancer treated with Lupron injections, history of paroxysmal atrial fibrillation, history of COPD, aortic valve stenosis, PVD, obesity, autoimmune hemolytic anemia, multiple myeloma, hx of postoperative anemia due to acute blood loss, selective deficiency of igm and iga, status post aortic valve replacement with prosthetic valve, who presents with cough and runny nose for the last 4 days which is not getting better. Also he does have lower extremity edema, which is slightly worse. Currently, resting comfortably and hemodynamically stable. Denies any chest pain, no shortness of breath other than his usual, could not lie flat. No headache, no blurred visions, no sore throat. Appetite is okay. No difficulty swallowing. No nausea, no abdominal pain. Normal bowel and bladder movements. No rash. ALLERGIES: TO NSAIDS, IODINE, AND IODINE-CONTAINING PRODUCTS, ASPIRIN. PAST MEDICAL HISTORY: As mentioned above. PAST SURGICAL HISTORY: Endoscopy, colonoscopy, EGD with endoscopic ultrasound, Whipple's procedure, bioprosthetic aortic valve replacement. MEDICATIONS: The patient is on Tylenol 500 mg p.o. q. 4 hours p.r.n., Eliquis 5 mg p.o. b.i.d., calcium plus vitamin D one tablet b.i.d., chlorhexidine gluconate 15 mL p.o. b.i.d., folic acid 1 mg p.o. daily, glucosamine 1000 mg p.o. daily, Revlimid 10 mg p.o. daily, metformin 1000 mg p.o. daily, metoclopramide 10 mg p.o. daily p.r.n., metoprolol tartrate 25 mg p.o. b.i.d., omeprazole 20 mg p.o. daily, pentoxifylline 400 mg p.o. b.i.d., spironolactone 25 mg p.o. daily, torsemide 20 mg p.o. daily, tramadol 50 mg p.o. daily, vitamin E 400 units p.o. b.i.d. FAMILY HISTORY: Significant for brother has colon cancer, at age 60; father had lung cancer; mother had colon cancer at age of 86, diabetes, stroke; sister has diabetes; and sister, lung cancer. SOCIAL HISTORY: , lives with his . Former smoker, quit in 1971. Smoked about 1 pack for 10 years, quit alcohol in 2001. Used to drink about 6 packs 1 or 2 days a week, on the weekends before. No drug use. REVIEW OF SYSTEMS: As per HPI. Rest of the review of systems is negative. PHYSICAL EXAMINATION: GENERAL: The patient is obese, not in acute distress. VITAL SIGNS: Temperature 37.1, pulse 86, respiratory rate 18, blood pressure 143/75, oxygen 95% on room air. HEENT: Pupils equal, round and reactive to light. Oral mucosa moist. NECK: No JVD or neck masses. CARDIOVASCULAR: S1 and S2 heard. Regular rate and rhythm. No murmur, no gallop. RESPIRATORY SYSTEM: Normal AP diameter. No accessory muscle use. No wheezing, no crackles. ABDOMEN: Soft, bowel sounds present, nontender, no distention. CENTRAL NERVOUS SYSTEM: Cranial nerves II-XII grossly intact, nonfocal. EXTREMITIES: Lower extremity edema present, no erythema seen. LABORATORY DATA: WBC 3.3, hemoglobin 14.2, hematocrit 42.4, platelets 80. PT 10.5, INR 1, APTT 30.2. Sodium 138, potassium 3.8, chloride 106, bicarbonate 28, BUN 15, creatinine 0.9, serum glucose 149, calcium 8.5, magnesium 1.9, total bilirubin 0.7, AST 38, ALT 41, alkaline phosphatase 205. Troponin I less than 0.015. BNP 665. Urinalysis, +3 glucose, +2 on ketones. SARS-CoV-2 PCR negative. RSV negative. IMAGING DATA: Chest x-ray, no acute findings seen. EKG: Sinus rhythm with sinus arrhythmia with first-degree AV block, right bundle-branch block, left posterior bifascicular block seen, at a rate of 86. ASSESSMENT AND PLAN: This is a 75-year-old male who presents with ongoing cough and runny nose and increased lower extremity edema. 1. Questionable congestive heart failure with increased lower extremity edema: The patient is on torsemide and spironolactone at home. Received IV Lasix 40 in the ER. Will continue his spironolactone dose and hold torsemide. Placed on IV Lasix 40 daily. We will follow echo, consult cardiology in the a.m. for further recommendations. His cough and sinus congestion could be from sinusitis or bronchitis. Will treat with doxycycline and monitor. 2. History of aortic valve stenosis status post AVR with bioprosthetic valve and postoperative perivalvular leak .Will follow echo. 3. History of hemolytic anemia with multiple myeloma. 4. History of pancreatic cancer: In 2009, status post Whipple procedure and completed chemo. 5. History of prostate cancer: Plan was to continue Lupron shots every 4 months. 6. History of hemolytic anemia requiring 2 units of PRBCs and was treated with prednisone. 7. History history of multiple myeloma. Currently is on Revlimid maintenance therapy. 8. Diabetes: Hold metformin. Placed on insulin sliding scale. 9. Leukopenia and thrombocytopenia: Possible ongoing chemo. Will follow the labs. 10. Deep venous thrombosis prophylaxis, on Eliquis. DISPOSITION: Closely monitor in the med rec. PT/OT prior to discharge. Social service to help with discharge planning. Job ID: [id number] [facility]PITALTeresita
[2020-12-27] MEDS ORDERED: METOCLOPRAMIDE HCL 10 MG TABLET PO PRN (07:39)
[2020-12-27] MEDS ORDERED: traMADol HCL 50 MG TABLET PO PRN (07:39)
[2020-12-27] MEDS ORDERED: NITROGLYCERIN SL 0.4 MG/TAB TAB SL PRN (07:39)
[2020-12-27] MEDS ORDERED: ACETAMINOPHEN 325 MG TAB PO PRN (07:39)
[2020-12-27] MEDS ORDERED: POLYETHYLENE (MIRALAX) 17 GM PACK PO PRN (07:39)
[2020-12-27 08:25] LABS: Hematocrit (blood only) 42.4 % (42-52); Hemoglobin 14.1 g/dL (14.0-18.0); Mean Corpuscular Hemoglobin 32.9 pg (25-34); Mean Corpuscular Hgb Conc 33.3 g/dL (32-36); Mean Corpuscular Volume 99.1 fL (80-100); RDW Coefficient of Variation 15.4 % (11.5-14.5); RDW Standard Deviation 55.9 fL (36.4-46.3); Red Blood Count 4.28 M/uL (4.7-6.1); White Blood Count 3.19 K/uL (4.8-10.8)
[2020-12-27] MEDS: CHLORHEXIDINE GLUCONATE 0.12% 480 ML MT SCH ×2 (08:42→20:00)
[2020-12-27] MEDS: PENTOXIFYLLINE 400MG EXT REL TAB PO SCH ×2 (08:43→20:02)
[2020-12-27] MEDS: PANTOprazole 40 MG TAB PO SCH (08:43)
[2020-12-27] MEDS: GLUCOSAMINE SULFATE 500 MG CAP PO SCH (08:43)
[2020-12-27] MEDS: SPIRONOLACTONE 25 MG TAB PO SCH (08:43)
[2020-12-27] MEDS: INSULIN ASPART 100 UNITS/ML 3 ML PEN SC SCH ×4 (08:43→20:56)
[2020-12-27] MEDS: TOCOPHERYL, DL-ALPHA 100 UNITS CAP PO SCH ×2 (08:43→20:01)
[2020-12-27 08:44] LABS: Basophils # (auto) 0.02 K/uL (0-0.2); Basophils % (auto) 0.6 %; Eosinophils # (auto) 0.02 K/uL (0-0.5); Eosinophils % (auto) 0.6 %; Immature Granulocytes # (auto) 0.01 K/uL (0.00-0.02); Immature Granulocytes % (auto) 0.3 %; Lymphocytes # (auto) 0.42 K/uL (1.2-3.4); Lymphocytes % (auto) 13.2 %; Mean Platelet Volume 11.4 fL (7.4-10.4); Monocytes # (auto) 0.23 K/uL (0.11-0.59); Monocytes % (auto) 7.2 %; Neutrophils # (auto) 2.49 K/uL (1.4-6.5); Neutrophils % (auto) 78.1 %; Platelet Count 75 K/uL (130-400)
[2020-12-27] MEDS: APIXABAN 5 MG TABLET PO SCH ×2 (08:44→20:01)
[2020-12-27] MEDS: CALCIUM 600MG + VIT D 400 IU TAB PO SCH (08:44)
[2020-12-27] MEDS: FOLIC ACID 1 MG TAB PO SCH (08:44)
[2020-12-27] MEDS: DOXYCYCLINE HYCLATE 100 MG CAP PO SCH ×2 (08:44→20:02)
[2020-12-27] MEDS: FUROSEMIDE 40 MG in SYRINGE 0 ML IV SCH (08:48)
[2020-12-27 08:49] LABS: BUN Creatinine Ratio 13.1 (10-20); Blood Urea Nitrogen 13 mg/dl (7-18); Calcium 8.7 mg/dl (8.5-10.1); Carbon Dioxide 29 mmol/L (21-32); Chloride 103 mmol/L (98-107); Creatinine Clr Calc Pharmacy 76.4 ml/min; Est GFR (African American) 83.5 ml/min; Est GFR (Non-African American) 72.1 ml/min; Glucose 177 mg/dl (70-99); Potassium 4.1 mmol/L (3.5-5.1); Sodium 137 mmol/L (136-145)
[2020-12-27 08:53] LABS: Troponin I < 0.015 ng/ml (0-0.045)
[2020-12-27] MEDS ORDERED: FUROSEMIDE 40 MG/4 ML VIAL IV SCH (09:00)
[2020-12-27] MEDS ORDERED: METOPROLOL TARTRATE 25 MG TAB PO SCH (09:00)
[2020-12-27] MEDS: LENALIDOMIDE 10 MG PO SCH (09:03)
[2020-12-27 10:04] LABS: Estimated Average Glucose 148 mg/dl; Hemoglobin A1C 6.8 % (4.5-5.6)
--- NOTE | 2020-12-27 12:06 | Cardiology Consultation ---
Date of Consultation December 27, 2020 Assessment & Plan (1) URI (upper respiratory infection): (2) Peripheral edema: (3) S/P AVR: Mr. Manriquez presented to the hospital with symptoms suggestive of an upper respiratory tract infection. Cardiology consultation requested due to peripheral edema which the patient describes as chronic, since aortic valve replacement. The peripheral edema appears to be multifactorial in etiology - diastolic congestive heart failure, history of extensive bilateral lower extremity DVTs, current treatment with Revlimid (Lenalidomide) which has a high incidence of causing peripheral edema. Recommend continuation of IV furosemide today, reassessing the need for additional IV diuretic therapy in the AM versus transition back to oral torsemide along with spironolactone. Resting echocardiography has been obtained and is pending interpretation. Treatment of the URI as per Hospitalist. Supervising Physician Co-Signing Physician Notes I have seen and examined the patient. I have reviewed the medical record and discussed the case with Mr. Glaser. After this consult was dictated the patient was noted on the security monitor to have 2 prolonged pauses that were asymptomatic. The patient's metoprolol has been held. We will have the patient transferred to PCU. History of Present Illness Reason for Consultation: Peripheral edema, ? CHF Requesting Physician: Tom Attending Physician: Brittnee History of Present Illness Mr. Rusty Manriquez is a complex 75-year-old male who is being seen at the request of Dr. Taurus Santos. Reason for consultation is lower extremity peripheral edema, ? CHF. The patient presented to the [facility] Emergency Room with complaints of cough, runny nose, upper chest congestion productive of clear, maybe slightly yellow sputum, without fevers or chills. He notes no known COVID-19 exposures and did receive COVID-19 vaccination. He notes that his granddaughter and two of her children have exact same symptoms. On questioning, the patient notes chronic stable lower extremity peripheral edema that has been present since since aortic valve replacement. With the current pulmonary exacerbation, the patient is having trouble lying flat due to coughing however prior to the pulmonary exacerbation he had no difficulty with orthopnea or PND. He does have a remote history of tobacco abuse. No exertional chest pain. No pleuritic chest pain. No unusual shortness of breath. No palpitations. No dizziness or syncope. He was Covid negative in the ER. NT proBNP was normal at 665 PG per mL. Troponin was negative, less than 0.015. Chest x-ray showed cardiomegaly without evidence of pulmonary edema, without acute cardiopulmonary findings. Coronary angiography performed on 07/30/2018, prior to transcatheter aortic valve replacement, showed widely patent coronary arteries. Patient status post 12/02/2018 mini-sternotomy aortic valve replacement with a 25 mm [address] valve by [address]. Rice at [facility]. Notable postoperative complications included paroxysmal atrial fibrillation. Postoperative perivalvular leak noted. 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 Allergies Allergy/AdvReac Type Severity Reaction Status Date / Time aspirin Allergy Severe HIVES Unverified 01/20/19 14:42 NSAIDS (Non-Steroidal Allergy Severe HIVES Unverified 01/20/19 14:42 Anti-Inflamma Iodine and Iodide Containing AdvReac Mild Verified 01/20/19 14:42 Produc Home Medications Medication Instructions Recorded Confirmed Type metoclopramide HCl 10 mg tablet 10 mg PO DAILY PRN 01/20/19 12/27/20 History metoprolol tartrate 25 mg tablet 25 mg PO BID 01/20/19 12/27/20 History omeprazole 20 mg capsule,delayed 20 mg PO DAILY 01/20/19 12/27/20 History release acetaminophen 500 mg tablet 500 mg PO Q4H PRN MDD 3 GRAMS/24 12/27/20 12/27/20 History (Tylenol Extra Strength) HOURS apixaban 5 mg tablet (Eliquis) 5 mg PO BID 12/27/20 12/27/20 History calcium carb,cit ER 600 mg-vit D3 1 tab PO DAILY 12/27/20 12/27/20 History 12.5 mcg (500 unit) tablet,ext.rel (Citracal-D3 Slow Release) chlorhexidine gluconate 0.12 % 15 ml PO BID 12/27/20 12/27/20 History mouthwash folic acid 1 mg tablet 1 mg PO DAILY 12/27/20 12/27/20 History glucosamine sulfate 500 mg tablet 1,000 mg PO DAILY 12/27/20 12/27/20 History (Glucosamine) lenalidomide 10 mg capsule 10 mg PO DAILY 12/27/20 12/27/20 History (Revlimid) metformin 500 mg tablet,extended 1,000 mg PO DAILY 12/27/20 12/27/20 History release 24 hr pentoxifylline 400 mg 400 mg PO BID 12/27/20 12/27/20 History tablet,extended release spironolactone 25 mg tablet 25 mg PO DAILY 12/27/20 12/27/20 History torsemide 10 mg tablet 20 mg PO DAILY 12/27/20 12/27/20 History tramadol 50 mg tablet 50 mg PO Q6H PRN 12/27/20 12/27/20 History vitamin E 200 unit capsule 400 unit PO BID 12/27/20 12/27/20 History Patient History Medical History (Updated 12/27/20 @ 12:14 by Gael Glaser) Compression fracture of L3 lumbar vertebra Enlarged lymph nodes Kidney stone Peripheral edema URI (upper respiratory infection) Surgical History (Updated 12/27/20 @ 12:14 by Gael Glaser) S/P AVR Family History Other Family history non-contributory Social History Smoking Status: Former smoker Second Hand Exposure: No; Do You Dip or Chew Tobacco: No; Tobacco Cessation Education Requested by Patient: No Hx Alcohol Use: No Hx Substance Use: No Preferred Language: [place] Communication Ability: Effective Waste Reclaimer Required: No Beliefs That Will Affect Care: Faith marital status: Current Living Situation: Spouse Other Information That Helps Us Care for You: No Feels Safe at Home: Yes Safety Concerns: Feels Safe At This Time Assistive Devices: None Review of Systems Review of Systems: Complete Review of Systems is as stated above, negative, or noncontributory. Physical Exam Physical Exam: General: A&Ox3. NAD. HENT: Normocephalic. Atraumatic. Eyes: PER. Conjunctiva pink, sclera clear. Neck: No overt JVD. Heart: RRR. Soft systolic murmur. No diastolic murmur appreciated. No rub. Lungs: Decreased. Diminished. No wheeze. Abdomen: +BS. Extremities: Chronic 1+ distal bilateral lower extremity edema. Mild stasis changes. No clubbing. No cyanosis. Limited neurological examination is without focal deficits. Pulses: radial=2/4, posterior tibial=1/4. Results & Data ([facility]) Vital Signs (Past 12 Hours) Vital Signs Temp Pulse Pulse Resp BP BP Pulse Ox 12/27/20 11:24 37.1 C 64 19 125/69 92 12/27/20 07:48 37.4 C 88 20 132/83 91 12/27/20 06:30 87 20 125/56 L 90 12/27/20 06:07 89 20 116/57 L 94 12/27/20 06:03 87 20 121/72 92 12/27/20 04:24 95 12/27/20 01:40 96 12/27/20 01:15 86 15 149/68 H 96 12/27/20 00:32 37.1 C 86 18 143/75 H 92 Laboratory Results Laboratory Results - last 24 hr 12/27/20 12/27/20 12/27/20 01:13 01:13 01:13 WBC 3.38 L RBC 4.27 L Hgb 14.2 Hct 42.4 MCV 99.3 MCH 33.3 MCHC 33.5 RDW Std Deviation 55.9 H RDW Coeff of Jim 15.3 H Plt Count 80 L MPV 12.8 H Immature Gran % (Auto) 0.3 Neut % (Auto) 76.6 Lymph % (Auto) 13.3 [place] % (Auto) 5.9 Eos % (Auto) 3.3 Baso % (Auto) 0.6 Neut # (Auto) 2.59 Lymph # (Auto) 0.45 L [place] # (Auto) 0.20 Eos # (Auto) 0.11 Baso # (Auto) 0.02 Immature Gran # (Auto) 0.01 Dohle Bodies 1+ Platelet Estimate Decreased L Ovalocytes 1+ Echinocytes 1+ PT 10.5 INR 1.0 APTT 30.2 PTT Ratio 1.1 Sodium 138 Potassium 3.8 Chloride 106 Carbon Dioxide 28 Anion Gap 4.0 BUN 15 Creatinine 0.92 Est Cr Clr Drug Dosing 84.7 Est GFR ( Amer) 94.6 Est GFR (Non-Af Amer) 81.6 BUN/Creatinine Ratio 15.8 Glucose 149 H POC Glucose Estimat Average Glucose Hemoglobin A1c Calcium 8.5 Magnesium 1.9 Total Bilirubin 0.7 AST 38 H ALT 41 Alkaline Phosphatase 205 H Troponin I < 0.015 NT-Pro-B Natriuret Pep 665 Total Protein 6.8 Albumin 3.6 Globulin 3.2 Albumin/Globulin Ratio 1.1 Specimen Hemolysis Urine Color Urine Appearance Urine pH Ur Specific [place] Urine Protein Urine Glucose (UA) Urine Ketones Urine Blood Urine Nitrite Urine Bilirubin Urine Urobilinogen Ur Leukocyte Esterase Urine WBC (Auto) Urine RBC (Auto) U Hyaline Cast (Auto) U Epithel Cells (Auto) Urine Bacteria (Auto) COVID-19 Eval Order SARS-CoV-2 (PCR) RSV (Molecular) 12/27/20 12/27/20 12/27/20 01:13 01:13 01:13 WBC RBC Hgb Hct MCV MCH MCHC RDW Std Deviation RDW Coeff of Jim Plt Count MPV Immature Gran % (Auto) Neut % (Auto) Lymph % (Auto) [place] % (Auto) Eos % (Auto) Baso % (Auto) Neut # (Auto) Lymph # (Auto) [place] # (Auto) Eos # (Auto) Baso # (Auto) Immature Gran # (Auto) Dohle Bodies Platelet Estimate Ovalocytes Echinocytes PT INR APTT PTT Ratio Sodium Potassium Chloride Carbon Dioxide Anion Gap BUN Creatinine Est Cr Clr Drug Dosing Est GFR ( Amer) Est GFR (Non-Af Amer) BUN/Creatinine Ratio Glucose POC Glucose Estimat Average Glucose Hemoglobin A1c Calcium Magnesium Total Bilirubin AST ALT Alkaline Phosphatase Troponin I NT-Pro-B Natriuret Pep Total Protein Albumin Globulin Albumin/Globulin Ratio Specimen Hemolysis Urine Color Urine Appearance Urine pH Ur Specific [place] Urine Protein Urine Glucose (UA) Urine Ketones Urine Blood Urine Nitrite Urine Bilirubin Urine Urobilinogen Ur Leukocyte Esterase Urine WBC (Auto) Urine RBC (Auto) U Hyaline Cast (Auto) U Epithel Cells (Auto) Urine Bacteria (Auto) COVID-19 Eval Order Covid19 at [facility] SARS-CoV-2 (PCR) NEGATIVE RSV (Molecular) Negative 12/27/20 12/27/20 12/27/20 01:35 07:50 08:06 WBC 3.19 L RBC 4.28 L Hgb 14.1 Hct 42.4 MCV 99.1 MCH 32.9 MCHC 33.3 RDW Std Deviation 55.9 H RDW Coeff of Jim 15.4 H Plt Count 75 L MPV 11.4 H Immature Gran % (Auto) 0.3 Neut % (Auto) 78.1 Lymph % (Auto) 13.2 [place] % (Auto) 7.2 Eos % (Auto) 0.6 Baso % (Auto) 0.6 Neut # (Auto) 2.49 Lymph # (Auto) 0.42 L [place] # (Auto) 0.23 Eos # (Auto) 0.02 Baso # (Auto) 0.02 Immature Gran # (Auto) 0.01 Dohle Bodies Platelet Estimate Ovalocytes Echinocytes PT INR APTT PTT Ratio Sodium Potassium Chloride Carbon Dioxide Anion Gap BUN Creatinine Est Cr Clr Drug Dosing Est GFR ( Amer) Est GFR (Non-Af Amer) BUN/Creatinine Ratio Glucose POC Glucose 165 H Estimat Average Glucose Hemoglobin A1c Calcium Magnesium Total Bilirubin AST ALT Alkaline Phosphatase Troponin I NT-Pro-B Natriuret Pep Total Protein Albumin Globulin Albumin/Globulin Ratio Specimen Hemolysis Urine Color Yellow Urine Appearance Clear Urine pH 6.5 Ur Specific [place] 1.022 Urine Protein Negative Urine Glucose (UA) 3+ H Urine Ketones 1+ H Urine Blood 3+ H Urine Nitrite Negative Urine Bilirubin Negative Urine Urobilinogen Negative Ur Leukocyte Esterase Negative Urine WBC (Auto) 1-5 Urine RBC (Auto) >30 H U Hyaline Cast (Auto) 0 U Epithel Cells (Auto) 5-10 H Urine Bacteria (Auto) Negative COVID-19 Eval Order SARS-CoV-2 (PCR) RSV (Molecular) 12/27/20 12/27/20 12/27/20 08:06 08:06 11:47 WBC RBC Hgb Hct MCV MCH MCHC RDW Std Deviation RDW Coeff of Jim Plt Count MPV Immature Gran % (Auto) Neut % (Auto) Lymph % (Auto) [place] % (Auto) Eos % (Auto) Baso % (Auto) Neut # (Auto) Lymph # (Auto) [place] # (Auto) Eos # (Auto) Baso # (Auto) Immature Gran # (Auto) Dohle Bodies Platelet Estimate Ovalocytes Echinocytes PT INR APTT PTT Ratio Sodium 137 Potassium 4.1 Chloride 103 Carbon Dioxide 29 Anion Gap 5.0 BUN 13 Creatinine 1.02 Est Cr Clr Drug Dosing 76.4 Est GFR ( Amer) 83.5 Est GFR (Non-Af Amer) 72.1 BUN/Creatinine Ratio 13.1 Glucose 177 H POC Glucose 198 H Estimat Average Glucose 148 Hemoglobin A1c 6.8 H Calcium 8.7 Magnesium 2.0 Total Bilirubin AST ALT Alkaline Phosphatase Troponin I < 0.015 NT-Pro-B Natriuret Pep Total Protein Albumin Globulin Albumin/Globulin Ratio Specimen Hemolysis Urine Color Urine Appearance Urine pH Ur Specific [place] Urine Protein Urine Glucose (UA) Urine Ketones Urine Blood Urine Nitrite Urine Bilirubin Urine Urobilinogen Ur Leukocyte Esterase Urine WBC (Auto) Urine RBC (Auto) U Hyaline Cast (Auto) U Epithel Cells (Auto) Urine Bacteria (Auto) COVID-19 Eval Order SARS-CoV-2 (PCR) RSV (Molecular) Diagnostic Findings Telemetry revealed sinus/sinus tachycardia. First degree AV block. Short run of PAT.
[2020-12-27] MEDS: IPRATROPIUM BROMIDE NEB SOLN 0.02% 2.5 ML VIAL INH SCH ×2 (15:40→18:07)
[2020-12-27] MEDS: LEVALBUTEROL 1.25MG/0.5ML NEB INH SCH ×2 (15:40→18:07)
--- NOTE | 2020-12-27 15:58 | Hospitalist Progress Note ---
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 Echo pending Lower Extremity Edema -- chronic -- continue Spironolactone on Eliquis for DVT Multiple Myeloma -- on Revlimid P A fib AV stenosis, history of AVR -- Metoprolol on hold for sinus pauses -- monitor History of DVT -- on Eliquis DM 2 -- ISS Disposition anticipate d/c home when medically stable plan of care discussed with patient in detail and at length all questions answered he is understanding, agreeable, comfortable with the plan of care Admission and Anticipated Discharge Date Admission Date: December 27, 2020 Subjective seen for Acute Bronchitis, etc seen resting in chair, sitting up, comfortable states he feels ok overall (+) productive cough, nasal congestion and runny nose denies dyspnea, chills, sweats no chest pain, palpitations, syncope/pre syncope, dizziness no other symptoms Review of Systems Review of Systems: all systems reviewed and negative except above Physical Exam Physical Exam: General- oriented x 3, not in distress, speaks in sentences with no effort or accessory muscle use Head- atraumatic Eyes- PERRL, EOMI, anicteric ENT- oropharynx clear (+) erythematous nasal mucosa Neck- supple, no JVD, no adenopathy, no thyromegaly; carotids +2/2, no bruits appreciated Lungs- (+) mild rhonchi bilaterally,good air entry bilaterally Heart- normal rate, regular rhythm; no murmur, no gallop, no rub appreciated Abdomen- normal bowel sounds, nondistended, soft, nontender, no masses or he patosplenomegaly Extremities- mild pretibial edema, no calf tenderness; peripheral pulses intact Neuro- alert, oriented x 3; CN 2-12 grossly intact; motor 5/5 bilaterally;sensation 100% on all extremities; no other gross focal neurologic deficits Skin- warm & dry Results & Data Results & Data ([facility]) Vital Signs (Past 12 Hours) Vital Signs Temp Pulse Pulse Resp BP BP Pulse Ox 12/27/20 15:17 38.3 C H 87 19 122/70 91 12/27/20 11:24 37.1 C 64 19 125/69 92 12/27/20 07:48 37.4 C 88 20 132/83 91 12/27/20 06:30 87 20 125/56 L 90 12/27/20 06:07 89 20 116/57 L 94 12/27/20 06:03 87 20 121/72 92 12/27/20 04:24 95 Laboratory Results Laboratory Results - last 24 hr 12/27/20 12/27/20 12/27/20 01:13 01:13 01:13 WBC 3.38 L RBC 4.27 L Hgb 14.2 Hct 42.4 MCV 99.3 MCH 33.3 MCHC 33.5 RDW Std Deviation 55.9 H RDW Coeff of Jim 15.3 H Plt Count 80 L MPV 12.8 H Immature Gran % (Auto) 0.3 Neut % (Auto) 76.6 Lymph % (Auto) 13.3 [place] % (Auto) 5.9 Eos % (Auto) 3.3 Baso % (Auto) 0.6 Neut # (Auto) 2.59 Lymph # (Auto) 0.45 L [place] # (Auto) 0.20 Eos # (Auto) 0.11 Baso # (Auto) 0.02 Immature Gran # (Auto) 0.01 Dohle Bodies 1+ Platelet Estimate Decreased L Ovalocytes 1+ Echinocytes 1+ PT 10.5 INR 1.0 APTT 30.2 PTT Ratio 1.1 Sodium 138 Potassium 3.8 Chloride 106 Carbon Dioxide 28 Anion Gap 4.0 BUN 15 Creatinine 0.92 Est Cr Clr Drug Dosing 84.7 Est GFR ( Amer) 94.6 Est GFR (Non-Af Amer) 81.6 BUN/Creatinine Ratio 15.8 Glucose 149 H POC Glucose Estimat Average Glucose Hemoglobin A1c Calcium 8.5 Magnesium 1.9 Total Bilirubin 0.7 AST 38 H ALT 41 Alkaline Phosphatase 205 H Troponin I < 0.015 NT-Pro-B Natriuret Pep 665 Total Protein 6.8 Albumin 3.6 Globulin 3.2 Albumin/Globulin Ratio 1.1 Specimen Hemolysis Urine Color Urine Appearance Urine pH Ur Specific [place] Urine Protein Urine Glucose (UA) Urine Ketones Urine Blood Urine Nitrite Urine Bilirubin Urine Urobilinogen Ur Leukocyte Esterase Urine WBC (Auto) Urine RBC (Auto) U Hyaline Cast (Auto) U Epithel Cells (Auto) Urine Bacteria (Auto) COVID-19 Eval Order SARS-CoV-2 (PCR) RSV (Molecular) 12/27/20 12/27/20 12/27/20 01:13 01:13 01:13 WBC RBC Hgb Hct MCV MCH MCHC RDW Std Deviation RDW Coeff of Jim Plt Count MPV Immature Gran % (Auto) Neut % (Auto) Lymph % (Auto) [place] % (Auto) Eos % (Auto) Baso % (Auto) Neut # (Auto) Lymph # (Auto) [place] # (Auto) Eos # (Auto) Baso # (Auto) Immature Gran # (Auto) Dohle Bodies Platelet Estimate Ovalocytes Echinocytes PT INR APTT PTT Ratio Sodium Potassium Chloride Carbon Dioxide Anion Gap BUN Creatinine Est Cr Clr Drug Dosing Est GFR ( Amer) Est GFR (Non-Af Amer) BUN/Creatinine Ratio Glucose POC Glucose Estimat Average Glucose Hemoglobin A1c Calcium Magnesium Total Bilirubin AST ALT Alkaline Phosphatase Troponin I NT-Pro-B Natriuret Pep Total Protein Albumin Globulin Albumin/Globulin Ratio Specimen Hemolysis Urine Color Urine Appearance Urine pH Ur Specific [place] Urine Protein Urine Glucose (UA) Urine Ketones Urine Blood Urine Nitrite Urine Bilirubin Urine Urobilinogen Ur Leukocyte Esterase Urine WBC (Auto) Urine RBC (Auto) U Hyaline Cast (Auto) U Epithel Cells (Auto) Urine Bacteria (Auto) COVID-19 Eval Order Covid19 at [facility] SARS-CoV-2 (PCR) NEGATIVE RSV (Molecular) Negative 12/27/20 12/27/20 12/27/20 01:35 07:50 08:06 WBC 3.19 L RBC 4.28 L Hgb 14.1 Hct 42.4 MCV 99.1 MCH 32.9 MCHC 33.3 RDW Std Deviation 55.9 H RDW Coeff of Jim 15.4 H Plt Count 75 L MPV 11.4 H Immature Gran % (Auto) 0.3 Neut % (Auto) 78.1 Lymph % (Auto) 13.2 [place] % (Auto) 7.2 Eos % (Auto) 0.6 Baso % (Auto) 0.6 Neut # (Auto) 2.49 Lymph # (Auto) 0.42 L [place] # (Auto) 0.23 Eos # (Auto) 0.02 Baso # (Auto) 0.02 Immature Gran # (Auto) 0.01 Dohle Bodies Platelet Estimate Ovalocytes Echinocytes PT INR APTT PTT Ratio Sodium Potassium Chloride Carbon Dioxide Anion Gap BUN Creatinine Est Cr Clr Drug Dosing Est GFR ( Amer) Est GFR (Non-Af Amer) BUN/Creatinine Ratio Glucose POC Glucose 165 H Estimat Average Glucose Hemoglobin A1c Calcium Magnesium Total Bilirubin AST ALT Alkaline Phosphatase Troponin I NT-Pro-B Natriuret Pep Total Protein Albumin Globulin Albumin/Globulin Ratio Specimen Hemolysis Urine Color Yellow Urine Appearance Clear Urine pH 6.5 Ur Specific [place] 1.022 Urine Protein Negative Urine Glucose (UA) 3+ H Urine Ketones 1+ H Urine Blood 3+ H Urine Nitrite Negative Urine Bilirubin Negative Urine Urobilinogen Negative Ur Leukocyte Esterase Negative Urine WBC (Auto) 1-5 Urine RBC (Auto) >30 H U Hyaline Cast (Auto) 0 U Epithel Cells (Auto) 5-10 H Urine Bacteria (Auto) Negative COVID-19 Eval Order SARS-CoV-2 (PCR) RSV (Molecular) 12/27/20 12/27/20 12/27/20 08:06 08:06 11:47 WBC RBC Hgb Hct MCV MCH MCHC RDW Std Deviation RDW Coeff of Jim Plt Count MPV Immature Gran % (Auto) Neut % (Auto) Lymph % (Auto) [place] % (Auto) Eos % (Auto) Baso % (Auto) Neut # (Auto) Lymph # (Auto) [place] # (Auto) Eos # (Auto) Baso # (Auto) Immature Gran # (Auto) Dohle Bodies Platelet Estimate Ovalocytes Echinocytes PT INR APTT PTT Ratio Sodium 137 Potassium 4.1 Chloride 103 Carbon Dioxide 29 Anion Gap 5.0 BUN 13 Creatinine 1.02 Est Cr Clr Drug Dosing 76.4 Est GFR ( Amer) 83.5 Est GFR (Non-Af Amer) 72.1 BUN/Creatinine Ratio 13.1 Glucose 177 H POC Glucose 198 H Estimat Average Glucose 148 Hemoglobin A1c 6.8 H Calcium 8.7 Magnesium 2.0 Total Bilirubin AST ALT Alkaline Phosphatase Troponin I < 0.015 NT-Pro-B Natriuret Pep Total Protein Albumin Globulin Albumin/Globulin Ratio Specimen Hemolysis Urine Color Urine Appearance Urine pH Ur Specific [place] Urine Protein Urine Glucose (UA) Urine Ketones Urine Blood Urine Nitrite Urine Bilirubin Urine Urobilinogen Ur Leukocyte Esterase Urine WBC (Auto) Urine RBC (Auto) U Hyaline Cast (Auto) U Epithel Cells (Auto) Urine Bacteria (Auto) COVID-19 Eval Order SARS-CoV-2 (PCR) RSV (Molecular) Diagnostic Findings all noted and reviewed
[2020-12-27] MEDS: FLUTICASONE PROPIONATE NA SPR 16 GM BTL SCH (16:12)
--- NOTE | 2020-12-27 17:06 | Electrocardiogram Report ---
Test Reason : Blood Pressure : / mmHG Vent. Rate : 086 BPM Atrial Rate : 086 BPM P-R Int : 248 ms QRS Dur : 146 ms QT Int : 410 ms P-R-T Axes : 073 127 035 degrees QTc Int : 490 ms Sinus rhythm with sinus arrhythmia with 1st degree A-V block Right bundle branch block Left posterior fascicular block Bifascicular block Abnormal ECG When compared with ECG of 20-JAN-2019 13:50, (RBBB and left posterior fascicular block) is now Present Confirmed by Raymundo Barbosa ([id number]) on 12/27/2020 5:06:14 PM Referred By: REFERRED SELF Confirmed By:Israel Barbosa
[2020-12-27] MEDS ORDERED: XOPENEX/ATROVENT 1.25mg/0.5MG NEB COMBO NEB SCH (19:00)
[2020-12-27] MEDS: guaiFENesin 600 MG TABCR PO SCH (20:02)
[2020-12-27 23:35] LABS: Potassium 3.3 mmol/L (3.5-5.1); Troponin I 0.018 ng/ml (0-0.045)
[2020-12-27] MEDS ORDERED: POTASSIUM CHLORIDE CRTAB 20 MEQ TABCR PO STA (23:51)
[2020-12-28] MEDS: IPRATROPIUM BROMIDE NEB SOLN 0.02% 2.5 ML VIAL INH SCH ×4 (01:10→18:58)
[2020-12-28] MEDS: LEVALBUTEROL 1.25MG/0.5ML NEB INH SCH ×4 (01:10→18:58)
[2020-12-28] MEDS: APIXABAN 5 MG TABLET PO SCH (07:39)
[2020-12-28] MEDS: TOCOPHERYL, DL-ALPHA 100 UNITS CAP PO SCH ×2 (07:40→21:27)
[2020-12-28] MEDS: DOXYCYCLINE HYCLATE 100 MG CAP PO SCH ×2 (07:41→21:27)
[2020-12-28] MEDS: guaiFENesin 600 MG TABCR PO SCH ×2 (07:41→21:27)
[2020-12-28] MEDS: PENTOXIFYLLINE 400MG EXT REL TAB PO SCH ×2 (07:42→21:28)
[2020-12-28] MEDS: GLUCOSAMINE SULFATE 500 MG CAP PO SCH (07:43)
[2020-12-28] MEDS: FOLIC ACID 1 MG TAB PO SCH (07:43)
[2020-12-28] MEDS: CALCIUM 600MG + VIT D 400 IU TAB PO SCH (07:44)
[2020-12-28] MEDS: PANTOprazole 40 MG TAB PO SCH (07:44)
[2020-12-28] MEDS: SPIRONOLACTONE 25 MG TAB PO SCH (07:45)
[2020-12-28] MEDS: FLUTICASONE PROPIONATE NA SPR 16 GM BTL SCH (07:46)
[2020-12-28] MEDS: FUROSEMIDE 40 MG in SYRINGE 0 ML IV SCH (07:46)
[2020-12-28] MEDS: CHLORHEXIDINE GLUCONATE 0.12% 480 ML MT SCH ×2 (07:47→20:59)
--- NOTE | 2020-12-28 08:38 | Cardiology Progress Note ---
Date of Service December 28, 2020 Assessment & Plan (1) URI (upper respiratory infection): (2) Peripheral edema: (3) Tachy-holly syndrome: (4) S/P AVR: Plan: Mr. Manriquez presented to the hospital with symptoms suggestive of an upper respiratory tract infection that have improved. Cardiology consultation was requested due to chronic peripheral edema that has been stable since prior aortic valve replacement, appearing to be multifactorial in etiology (diastolic congestive heart failure, history of extensive bilateral lower extremity DVTs, current treatment with Revlimid (Lenalidomide)). Unfortunately, continuous telemetry monitoring has revealed two prolonged (asymptomatic) pauses as well as what appears to be short runs of paroxysmal atrial fibrillation, Tachy-Holly Syndrome. Metoprolol is currently being held for now. He is anticoagulated with Eliquis. EKG requested today along with additional laboratory work. Recommend Electrophysiology Consultation for permanent dual chamber pacemaker implantation. Recommend switching IV furosemide back to oral torsemide. Admission and Anticipated Discharge Date Admission Date: December 27, 2020 Supervising Physician Co-Signing Physician Notes I have seen and evaluated the patient. I reviewed the medical record and discussed the case with Mr. Glaser. I think this patient has tachybradycardia syndrome and will require permanent pacemaker. We will put his Eliquis on hold and asked the EP service to see him. Subjective Patient seen and examined. Chart, medications, and telemetry reviewed. Patient is anxious for discharge. Patient transferred to the PCU yesterday afternoon due to asymptomatic pauses on telemetry. Metoprolol held. Review of the patient's continuous property assessment monitor reveals an 8.1-second pause on December 27, 2020 at 10:05 AM and an 8.9-second pause on December 27, 2020 at 12:07 PM. Telemetry thereafter reveals sinus with frequent premature atrial contractions and short runs of probable paroxysmal atrial fibrillation. He is feeling better in regards to the URI. He denies weakness, dizziness, lightheadedness, near syncope, syncope, or palpitations. No chest pain. No shortness of breath. Stable peripheral edema. No orthopnea or PND. Review of Systems Review of Systems: Complete review of systems is otherwise as stated above, negative, or noncontributory. Physical Exam Physical Exam: General: A&Ox3. NAD. HENT: Normocephalic. Atraumatic. Eyes: PER. Conjunctiva pink, sclera clear. Neck: No overt JVD. Heart: Distant heart sounds. Irregular. Soft systolic murmur. No diastolic murmur appreciated. No rub. Lungs: Decreased. Diminished. No wheeze. Abdomen: +BS. Extremities: Chronic 1+ distal bilateral lower extremity edema. No clubbing. No cyanosis. Limited neurological examination is without focal deficits. Pulses: radial=2/4, posterior tibial=1/4. Results & Data ([facility]) Vital Signs (Past 12 Hours) Vital Signs Temp Pulse Pulse Resp BP Pulse Ox 12/28/20 07:26 37.1 C 79 18 123/71 95 12/28/20 07:08 83 16 92 12/28/20 04:15 37.6 C H 94 H 22 128/66 95 12/28/20 01:13 78 15 97 12/28/20 00:00 96 H 12/27/20 23:17 37.2 C 104 H 20 153/86 H 95 12/27/20 21:25 95 12/27/20 21:19 37.1 C 106 H 24 126/64 91 Laboratory Results Laboratory Results - last 24 hr 12/27/20 12/27/20 12/27/20 08:06 08:06 08:06 Plt Count 75 L MPV 11.4 H Immature Gran % (Auto) 0.3 Neut % (Auto) 78.1 Lymph % (Auto) 13.2 [place] % (Auto) 7.2 Eos % (Auto) 0.6 Baso % (Auto) 0.6 Neut # (Auto) 2.49 Lymph # (Auto) 0.42 L [place] # (Auto) 0.23 Eos # (Auto) 0.02 Baso # (Auto) 0.02 Immature Gran # (Auto) 0.01 Sodium 137 Potassium 4.1 Chloride 103 Carbon Dioxide 29 Anion Gap 5.0 BUN 13 Creatinine 1.02 Est Cr Clr Drug Dosing 76.4 Est GFR ( Amer) 83.5 Est GFR (Non-Af Amer) 72.1 BUN/Creatinine Ratio 13.1 Glucose 177 H POC Glucose Estimat Average Glucose 148 Hemoglobin A1c 6.8 H Calcium 8.7 Magnesium 2.0 Troponin I < 0.015 Specimen Hemolysis 12/27/20 12/27/20 12/27/20 11:47 16:34 20:54 Plt Count MPV Immature Gran % (Auto) Neut % (Auto) Lymph % (Auto) [place] % (Auto) Eos % (Auto) Baso % (Auto) Neut # (Auto) Lymph # (Auto) [place] # (Auto) Eos # (Auto) Baso # (Auto) Immature Gran # (Auto) Sodium Potassium Chloride Carbon Dioxide Anion Gap BUN Creatinine Est Cr Clr Drug Dosing Est GFR ( Amer) Est GFR (Non-Af Amer) BUN/Creatinine Ratio Glucose POC Glucose 198 H 197 H 164 H Estimat Average Glucose Hemoglobin A1c Calcium Magnesium Troponin I Specimen Hemolysis 12/27/20 12/28/20 12/28/20 22:36 05:36 07:24 Plt Count MPV Immature Gran % (Auto) Neut % (Auto) Lymph % (Auto) [place] % (Auto) Eos % (Auto) Baso % (Auto) Neut # (Auto) Lymph # (Auto) [place] # (Auto) Eos # (Auto) Baso # (Auto) Immature Gran # (Auto) Sodium Potassium 3.3 L D Chloride Carbon Dioxide Anion Gap BUN Creatinine Est Cr Clr Drug Dosing Est GFR ( Amer) Est GFR (Non-Af Amer) BUN/Creatinine Ratio Glucose POC Glucose 161 H Estimat Average Glucose Hemoglobin A1c Calcium Magnesium 2.0 Troponin I 0.018 0.022 Specimen Hemolysis Diagnostic Findings EKG on December 27, 2020 revealed sinus with frequent premature atrial complexes and probable PAF. Right bundle branch block, left posterior fascicular block, bifascicular block. December 27, 2020 TTE Interpretation Summary ([facility], Dr. Beltran): Technically limited. Normal LV size, wall motion, and systolic function. Ejection fraction 55 to 60%. Normal left atrial size. Normal right atrial size. Bioprosthetic aortic valve with normal gradients; no significant aortic regurgitation.
--- NOTE | 2020-12-28 08:43 | XRay Report ---
XR chest 1V portable HISTORY: 75 years-old Male cough, r/o pneumonia acute cough COMPARISON: Chest radiograph 12/27/2020, PET CT 02/22/2019 TECHNIQUE: Portable AP view of the chest FINDINGS: Cardiac silhouette is upper limits of normal in size. Prior median sternotomy. Calcific plaque of the thoracic aorta. No pneumothorax, pleural effusion, airspace consolidation or overt pulmonary edema. The previously described hazy ill-defined opacity of the lateral right lung base is less discrete on today's study and is suggestive of summation density. Degenerative changes of the shoulders and spine . IMPRESSION: 1. No acute process. 2. Ill-defined opacity of the right lateral lung base is less conspicuous than yesterday's study and is suggestive of probable summation density. Subtle airspace disease is considered less likely. ACT 112: Negative or not required by law. The above report was generated using voice recognition software. It may contain grammatical, syntax o r spelling errors. Electronically signed by: Fawad Dennis M.D. 12/28/2020 8:41 AM
[2020-12-28] MEDS: INSULIN ASPART 100 UNITS/ML 3 ML PEN SC SCH ×4 (08:50→22:59)
[2020-12-28 09:27] LABS: Albumin Level 3.9 gm/dl (3.4-5.0); BUN Creatinine Ratio 13.9 (10-20); Calcium 8.5 mg/dl (8.5-10.1); Creatinine Clr Calc Pharmacy 65.7 ml/min; Est GFR (African American) 70.8 ml/min; Est GFR (Non-African American) 61.1 ml/min; Magnesium 2.1 mg/dl (1.8-2.4); Potassium 3.4 mmol/L (3.5-5.1)
[2020-12-28 09:37] LABS: Albumin Globulin Ratio 1.1 (0.9-2); Bilirubin,Total 1.1 mg/dl (0.2-1); Globulin 3.6 gm/dl (2.5-4.0); Thyroid Stimulating Hormone 1.14 uIu/ml (0.300-4.500); Total Protein 7.5 gm/dl (6.4-8.2)
[2020-12-28 09:58] LABS: Hematocrit (blood only) 45.1 % (42-52); Hemoglobin 14.8 g/dL (14.0-18.0); Mean Corpuscular Hemoglobin 32.4 pg (25-34); Mean Corpuscular Hgb Conc 32.8 g/dL (32-36); Mean Corpuscular Volume 98.7 fL (80-100); Mean Platelet Volume 12.6 fL (7.4-10.4); Platelet Count 77 K/uL (130-400); RDW Coefficient of Variation 15.4 % (11.5-14.5); Red Blood Count 4.57 M/uL (4.7-6.1); White Blood Count 2.73 K/uL (4.8-10.8)
[2020-12-28 10:01] LABS: Basophils # (auto) 0.02 K/uL (0-0.2); Basophils % (auto) 0.7 %; Giant Platelets 1+; Immature Granulocytes # (auto) 0.01 K/uL (0.00-0.02); Immature Granulocytes % (auto) 0.4 %; Lymphocytes # (auto) 0.36 K/uL (1.2-3.4); Lymphocytes % (auto) 13.2 %; Monocytes # (auto) 0.13 K/uL (0.11-0.59); Monocytes % (auto) 4.8 %; Neutrophils # (auto) 2.21 K/uL (1.4-6.5); Neutrophils % (auto) 80.9 %; Platelet Estimate Decreased (Normal)
[2020-12-28] MEDS: cefTRIAXone SODIUM 2,000 MG in DEXTROSE 5% 50 ML IV SCH (10:20)
[2020-12-28] MEDS ORDERED: POTASSIUM CHLORIDE CRTAB 20 MEQ TABCR PO STA (10:22)
[2020-12-28] MEDS: LENALIDOMIDE 10 MG PO SCH (10:45)
[2020-12-28] MEDS: TORSEMIDE 10 MG TAB PO SCH (10:45)
[2020-12-28] MEDS ORDERED: PHARMACY GLYCEMIC MGMT CONSULT SCH (11:17)
[2020-12-28] MEDS ORDERED: INSULIN GLARGINE SOLOSTAR 100 UNITS/ML 3 ML PEN SC ONE ×2 (11:30→18:00)
[2020-12-28] MEDS ORDERED: CARBOHYDRATES FOR HYPOGLYCEMIA PO PRN (11:30)
[2020-12-28] MEDS ORDERED: INSULIN ASPART 100 UNITS/ML 3 ML PEN SC ONE (11:30)
[2020-12-28] MEDS ORDERED: GLUCAGON FOR INJ 1 MG VIAL IM PRN (11:30)
[2020-12-28] MEDS ORDERED: GLUCOSE 10 TABS/TUBE PO PRN (11:30)
[2020-12-28] MEDS ORDERED: GLUCOSE 40% GEL 15 GM TUBE PO PRN (11:30)
[2020-12-28] MEDS ORDERED: DEXTROSE 50% 50 ML SYRINGE IV PRN (11:30)
--- NOTE | 2020-12-28 11:37 | Pharmacy Report ---
Pharmacy Glycemic Short Note 2 - Date of Service December 28, 2020 - Glycemic Short BSG Results (Last 24 hours): 12/27/20 12/27/20 12/27/20 11:47 16:34 20:54 Glucose POC Glucose 198 H 197 H 164 H 12/28/20 12/28/20 12/28/20 07:24 08:43 11:15 Glucose 288 H POC Glucose 161 H 199 H OUTPATIENT ANTIDIABETIC REGIMEN: * Metformin 1gm PO daily * A1c = 6.8% 12/27/20 ASSESSMENT: * Type 2 diabetic admitted for upper resp track infection * BSGs mildly elevated with Novolog CF/CR only - will adjust these parameters to allow for greater mealtime doses * Fasting BSGs have been elevated - will start low dose basal ("mild" stress weight based regimen) PLAN FOR INPATIENT GLYCEMIC CONTROL: * Hold outpatient oral diabetes medications (metformin) * Basal insulin * Lantus 8 units SQ BID * Bolus insulin * NovoLog per scale ACHS or Q6hrs while NPO * Goal Range: Low 110 mg/dL - High 140 mg/dL * Correction Factor: 25 mg/dL/unit * Nutritional / Prandial insulin per carb ratio of 1 unit per 8 grams CHO consumed PLAN FOR DISCHARGE: * May resume metformin on discharge if no contraindications present, A1c 6.8% at goal
--- NOTE | 2020-12-28 13:54 | Electrocardiogram Report ---
Test Reason : Blood Pressure : / mmHG Vent. Rate : 100 BPM Atrial Rate : 100 BPM P-R Int : 000 ms QRS Dur : 146 ms QT Int : 416 ms P-R-T Axes : 000 124 057 degrees QTc Int : 536 ms Sinus rhythm with frequent and consecutive atrial ectopy Right bundle branch block Left posterior fascicular block Bifascicular block Abnormal ECG Confirmed by Raymundo Barbosa ([id number]) on 12/28/2020 1:54:08 PM Referred By: REFERRED SELF Confirmed By:Israel Barbosa
[2020-12-28 15:58] LABS: Influenza A virus by PCR Negative (Negative); Influenza B virus by PCR Negative (Negative)
--- NOTE | 2020-12-28 16:12 | Hospitalist Progress Note ---
Date of Service December 28, 2020 Assessment & Plan (1) URI (upper respiratory infection): Plan: 75 y/o male with Mult Myeloma, P A fib on Eliquis, AV stenosis, DM, Hx of DVT presenting Acute Bronchitis, Sinusitis -- CXR: no PNA COVID negative --T-max 39.3 Repeat chest x-ray no pneumonia Blood culture: Pending --Clinically seems to be improving overall --Start ceftriaxone day #1 Continue doxycycline 100mg BID Nebs Mucinex Flonase -- monitor closely Sinus Pauses -- 2 episodes, 8 sec each -- asymptomatic -- held Metoprolol Turret Lathe Tender consulted Echo pending --No recurrence of sinus pauses since holding metoprolol --Awaiting cardiology service recommendation Lower Extremity Edema -- chronic -- continue Spironolactone on Eliquis for DVT Multiple Myeloma -- on Revlimid P A fib AV stenosis, history of AVR -- Metoprolol on hold for sinus pauses -- monitor History of DVT -- on Eliquis DM 2 -- ISS Disposition anticipate d/c home when medically stable plan of care discussed with patient in detail and at length all questions answered he is understanding, agreeable, comfortable with the plan of care Admission and Anticipated Discharge Date Admission Date: December 27, 2020 Subjective Follow-up for acute bronchitis, etc. Seen resting bedside chair, comfortable, not in distress States he feels improved today Breathing has improved, still has productive cough but more loose Nasal discharge also improving Denies chest pain, palpitations, dizziness, presyncope or syncope No other symptoms Review of Systems Review of Systems: All noted and reviewed, negative except for above Physical Exam Physical Exam: General- oriented x 3, not in distress, speaks in sentences with no effort or accessory muscle use Eyes- anicteric Neck- no JVD Lungs-mild rhonchi bilateral bases, no wheezing, good air entry bilaterally Heart- normal rate, regular rhythm; no murmurs Abdomen- normal bowel sounds, nondistended, soft, nontender Extremities- no pretibial edema, no calf tenderness Neuro- alert, oriented x 3; no gross focal neurologic deficits Skin- warm & dry Results & Data Results & Data ([facility]) Vital Signs (Past 12 Hours) Vital Signs Temp Pulse Pulse Resp BP Pulse Ox 12/28/20 15:25 37.6 C H 94 H 19 108/62 96 12/28/20 13:13 80 18 97 12/28/20 11:17 36.9 C 89 19 120/66 95 12/28/20 08:00 73 12/28/20 07:26 37.1 C 79 18 123/71 95 12/28/20 07:08 83 16 92 12/28/20 04:15 37.6 C H 94 H 22 128/66 95 all noted and reviewed including below
--- NOTE | 2020-12-28 16:51 | Electrocardiogram Report ---
Test Reason : Blood Pressure : / mmHG Vent. Rate : 086 BPM Atrial Rate : 086 BPM P-R Int : 238 ms QRS Dur : 150 ms QT Int : 416 ms P-R-T Axes : 084 107 051 degrees QTc Int : 497 ms Sinus rhythm with 1st degree A-V block with Premature atrial complexes Right bundle branch block Abnormal ECG Confirmed by Raymundo Barbosa ([id number] on 12/28/2020 4:50:39 PM Referred By: REFERRED SELF Confirmed By:Israel Barbosa
--- NOTE | 2020-12-28 17:03 | Cardiology Consultation ---
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 At other times he has periods of ventricular asystole lasting several seconds. I believe most of the dysfunction is likely sinus in nature but he does have some AV conduction disease and infra-Hisian conduction disease as well. In order to facilitate treatment of his atrial arrhythmias and prevent symptoms associated with periods of ventricular asystole he will require a permanent pacemaker. I did discuss the procedure with the patient today. We did discuss the risks and alternatives. He does have a history of an implanted port in the left subclavian system. 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 As such, it seems most appropriate to place the device on the right side. We will hold his Eliquis today and plan on an implant tomorrow morning. History of Present Illness Reason for Consultation: Asystole Requesting Physician: Ruby Attending Physician: Tenzin Beaulieu MD History of Present Illness The patient is a 75-year-old gentleman admitted for upper respiratory symptoms and found to have episodes of ventricular asystole on telemetry. He also has frequent and rapid atrial ectopy and is known to have atrial fibrillation. The patient did not report any sense of palpitations earlier. Yesterday he had 2 significant episodes of bradycardia which did not produce symptoms of dizzine ss or lightheadedness. He claims to be an otherwise active individual who does not experience the symptoms at other times. He did not endorse any symptoms of syncope. Etiology of his respiratory symptoms is suspected to be pneumonia. He did not appear to have evidence of pulmonary vascular congestion or any recent ischemic event. Allergies Allergy/AdvReac Type Severity Reaction Status Date / Time aspirin Allergy Severe HIVES Unverified 01/20/19 14:42 NSAIDS (Non-Steroidal Allergy Severe HIVES Unverified 01/20/19 14:42 Anti-Inflamma Iodine and Iodide Containing AdvReac Mild Verified 01/20/19 14:42 Produc Home Medications Medication Instructions Recorded Confirmed Type metoclopramide HCl 10 mg tablet 10 mg PO DAILY PRN 01/20/19 12/27/20 History metoprolol tartrate 25 mg tablet 25 mg PO BID 01/20/19 12/27/20 History omeprazole 20 mg capsule,delayed 20 mg PO DAILY 01/20/19 12/27/20 History release acetaminophen 500 mg tablet 500 mg PO Q4H PRN MDD 3 GRAMS/24 12/27/20 12/27/20 History (Tylenol Extra Strength) HOURS apixaban 5 mg tablet (Eliquis) 5 mg PO BID 12/27/20 12/27/20 History calcium carb,cit ER 600 mg-vit D3 1 tab PO DAILY 12/27/20 12/27/20 History 12.5 mcg (500 unit) tablet,ext.rel (Citracal-D3 Slow Release) chlorhexidine gluconate 0.12 % 15 ml PO BID 12/27/20 12/27/20 History mouthwash folic acid 1 mg tablet 1 mg PO DAILY 12/27/20 12/27/20 History glucosamine sulfate 500 mg tablet 1,000 mg PO DAILY 12/27/20 12/27/20 History (Glucosamine) lenalidomide 10 mg capsule 10 mg PO DAILY 12/27/20 12/27/20 History (Revlimid) metformin 500 mg tablet,extended 1,000 mg PO DAILY 12/27/20 12/27/20 History release 24 hr pentoxifylline 400 mg 400 mg PO BID 12/27/20 12/27/20 History tablet,extended release spironolactone 25 mg tablet 25 mg PO DAILY 12/27/20 12/27/20 History torsemide 10 mg tablet 20 mg PO DAILY 12/27/20 12/27/20 History tramadol 50 mg tablet 50 mg PO Q6H PRN 12/27/20 12/27/20 History vitamin E 200 unit capsule 400 unit PO BID 12/27/20 12/27/20 History Patient History Medical History Compression fracture of L3 lumbar vertebra Enlarged lymph nodes Kidney stone Peripheral edema Tachy-holly syndrome URI (upper respiratory infection) Surgical History S/P AVR Family History Other Family history non-contributory Social History Smoking Status: Former smoker Second Hand Exposure: No; Do You Dip or Chew Tobacco: No; Tobacco Cessation Education Requested by Patient: No Hx Alcohol Use: No Hx Substance Use: No Preferred Language: Rwandan Communication Ability: Effective [place] Required: No Beliefs That Will Affect Care: Taoist marital status: Current Living Situation: Spouse Other Information That Helps Us Care for You: No Feels Safe at Home: Yes Safety Concerns: Feels Safe At This Time Assistive Devices: None Review of Systems Review of Systems: Per HPI Physical Exam Physical Exam: The patient is alert and oriented. Mood and affect appeared normal. He answered all questions appropriately. HEENT: Pupils are equal and reactive to light and accommodation. Extraocular movements are intact. The sclerae are anicteric. Neuro: Cranial nerves intact Chest: Well-healed sternotomy scar Lungs: Normal respiratory effort Extremities: There was no evidence of hypoperfusion. There is no cyanosis or clubbing. There is no edema. Skin: I did not appreciate any rashes on examination today. Results & Data ([facility] [place]) Vital Signs (Past 12 Hours) Vital Signs Temp Pulse Pulse Resp BP Pulse Ox 12/28/20 15:25 37.6 C H 94 H 19 108/62 96 12/28/20 13:13 80 18 97 12/28/20 11:17 36.9 C 89 19 120/66 95 12/28/20 08:00 73 12/28/20 07:26 37.1 C 79 18 123/71 95 12/28/20 07:08 83 16 92 Laboratory Results Abnormal Lab Results 12/27/20 12/27/20 12/28/20 20:54 22:36 05:36 WBC RBC Hgb Hct MCV MCH MCHC RDW Std Deviation RDW Coeff of Jim Plt Count MPV Immature Gran % (Auto) Neut % (Auto) Lymph % (Auto) [place] % (Auto) Eos % (Auto) Baso % (Auto) Neut # (Auto) Lymph # (Auto) [place] # (Auto) Eos # (Auto) Baso # (Auto) Immature Gran # (Auto) Platelet Estimate Giant Platelets Sodium Potassium 3.3 L D Chloride Carbon Dioxide Anion Gap BUN Creatinine Est Cr Clr Drug Dosing Est GFR ( Amer) Est GFR (Non-Af Amer) BUN/Creatinine Ratio Glucose POC Glucose 164 H Calcium Magnesium 2.0 Total Bilirubin AST ALT Alkaline Phosphatase Troponin I 0.018 0.022 Total Protein Albumin Globulin Albumin/Globulin Ratio TSH Specimen Hemolysis Influ A Molecular Assay Influ B Molecular Assay 07/15/21 07/15/21 07/15/21 07:24 08:43 08:43 WBC 2.73 L RBC 4.57 L Hgb 14.8 Hct 45.1 MCV 98.7 MCH 32.4 MCHC 32.8 RDW Std Deviation 56.0 H RDW Coeff of Jim 15.4 H Plt Count 77 L MPV 12.6 H Immature Gran % (Auto) 0.4 Neut % (Auto) 80.9 Lymph % (Auto) 13.2 [place] % (Auto) 4.8 Eos % (Auto) 0.0 Baso % (Auto) 0.7 Neut # (Auto) 2.21 Lymph # (Auto) 0.36 L [place] # (Auto) 0.13 Eos # (Auto) 0.00 Baso # (Auto) 0.02 Immature Gran # (Auto) 0.01 Platelet Estimate Decreased L Giant Platelets 1+ Sodium 133 L Potassium 3.4 L Chloride 99 Carbon Dioxide 25 Anion Gap 9.0 BUN 16 Creatinine 1.17 Est Cr Clr Drug Dosing 65.7 Est GFR ( Amer) 70.8 Est GFR (Non-Af Amer) 61.1 BUN/Creatinine Ratio 13.9 Glucose 288 H POC Glucose 161 H Calcium 8.5 Magnesium 2.1 Total Bilirubin 1.1 H D AST 32 ALT 38 Alkaline Phosphatase 201 H Troponin I Total Protein 7.5 Albumin 3.9 Globulin 3.6 Albumin/Globulin Ratio 1.1 TSH 1.140 Specimen Hemolysis Influ A Molecular Assay Influ B Molecular Assay 12/28/20 12/28/20 12/28/20 11:15 15:30 16:12 WBC RBC Hgb Hct MCV MCH MCHC RDW Std Deviation RDW Coeff of Jim Plt Count MPV Immature Gran % (Auto) Neut % (Auto) Lymph % (Auto) [place] % (Auto) Eos % (Auto) Baso % (Auto) Neut # (Auto) Lymph # (Auto) [place] # (Auto) Eos # (Auto) Baso # (Auto) Immature Gran # (Auto) Platelet Estimate Giant Platelets Sodium Potassium Chloride Carbon Dioxide Anion Gap BUN Creatinine Est Cr Clr Drug Dosing Est GFR ( Amer) Est GFR (Non-Af Amer) BUN/Creatinine Ratio Glucose POC Glucose 199 H 88 Calcium Magnesium Total Bilirubin AST ALT Alkaline Phosphatase Troponin I Total Protein Albumin Globulin Albumin/Globulin Ratio TSH Specimen Hemolysis Influ A Molecular Assay Negative Influ B Molecular Assay Negative Diagnostic Findings Echocardiogram performed 12/27/2020: Ejection fraction 55 to 60%. Normally functioning bioprosthetic aortic valve. PG Care Time/CCT Total # of Minutes Spent Total Time Spent with Patient: Total time spent is greater than 50% in coordination of care (as documented) at patient's floor/unit and/or counseling patient: Coding Level of Care Code 45968 Initial Inpt Care Lvl 3 Diagnoses Tachy-holly syndrome I49.5
[2020-12-28] MEDS ORDERED: diphenhydrAMINE Capsule 25 MG CAP PO ONE (17:13)
[2020-12-28] MEDS ORDERED: predniSONE 50 MG TAB PO SCH (18:00)
[2020-12-28] MEDS ORDERED: INSULIN GLARGINE SOLOSTAR 100 UNITS/ML 3 ML PEN SC SCH (21:00)
[2020-12-29] MEDS: INSULIN ASPART 100 UNITS/ML 3 ML PEN SC SCH ×4 (00:17→12:33)
[2020-12-29] MEDS: IPRATROPIUM BROMIDE NEB SOLN 0.02% 2.5 ML VIAL INH SCH ×3 (01:15→12:59)
[2020-12-29] MEDS: LEVALBUTEROL 1.25MG/0.5ML NEB INH SCH ×3 (01:15→12:59)
[2020-12-29] MEDS: predniSONE 50 MG TAB PO SCH ×2 (02:17→11:24)
[2020-12-29] MEDS ORDERED: diphenhydrAMINE Capsule 25 MG CAP PO SCH (06:00)
[2020-12-29] MEDS ORDERED: BUPIVACAINE 0.25% 30 ML VIAL ONE (06:51)
[2020-12-29] MEDS ORDERED: WATER, STERILE FOR INJ 10 ML VIAL ONE (06:51)
[2020-12-29] MEDS ORDERED: VANCOMYCIN HCL 1000MG/20ML VIAL ONE ×2 (06:51→09:46)
[2020-12-29] MEDS ORDERED: LIDOCAINE 1% LOCAL 20 ML VIAL ONE (06:51)
[2020-12-29 06:53] LABS: Mean Corpuscular Hgb Conc 32.9 g/dL (32-36)
[2020-12-29 06:58] LABS: Hematocrit (blood only) 42.3 % (42-52); Hemoglobin 13.9 g/dL (14.0-18.0); Mean Corpuscular Hemoglobin 32.5 pg (25-34); Mean Corpuscular Volume 98.8 fL (80-100); RDW Coefficient of Variation 15.3 % (11.5-14.5); RDW Standard Deviation 55.5 fL (36.4-46.3); Red Blood Count 4.28 M/uL (4.7-6.1); White Blood Count 3.02 K/uL (4.8-10.8)
[2020-12-29 07:06] LABS: Platelet Count 80 K/uL (130-400)
[2020-12-29 07:25] LABS: Basophils # (auto) 0.01 K/uL (0-0.2); Basophils % (auto) 0.3 %; Lymphocytes # (auto) 0.36 K/uL (1.2-3.4); Lymphocytes % (auto) 11.9 %; Monocytes # (auto) 0.17 K/uL (0.11-0.59); Monocytes % (auto) 5.6 %; Neutrophils # (auto) 2.48 K/uL (1.4-6.5); Neutrophils % (auto) 82.2 %; Ovalocytes 1+; Platelet Estimate Decreased (Normal)
[2020-12-29 07:32] LABS: Albumin Level 3.5 gm/dl (3.4-5.0); BUN Creatinine Ratio 19.3 (10-20); Calcium 8.4 mg/dl (8.5-10.1); Creatinine Clr Calc Pharmacy 81.5 ml/min; Est GFR (African American) 93.4 ml/min; Est GFR (Non-African American) 80.6 ml/min; Magnesium 2.6 mg/dl (1.8-2.4); Potassium 3.7 mmol/L (3.5-5.1)
[2020-12-29 07:35] LABS: Bilirubin,Total 0.7 mg/dl (0.2-1); Globulin 3.5 gm/dl (2.5-4.0)
[2020-12-29] MEDS ORDERED: MIDAZOLAM HCL 5 MG/ML 1 ML VIAL ONE (08:52)
[2020-12-29] MEDS ORDERED: fentaNYL citrate 100 MCG/2 ML VIAL ONE (08:53)
[2020-12-29] MEDS ORDERED: INSULIN GLARGINE SOLOSTAR 100 UNITS/ML 3 ML PEN SC SCH ×2 (09:00→21:00)
--- NOTE | 2020-12-29 09:05 | Pre Anesthesia Assessment ---
Date of Service December 29, 2020 Pre Sedation Assessment Vital Signs Temp Pulse Pulse Resp BP BP Pulse Ox 12/29/20 08:45 87 16 140/93 94 12/29/20 08:00 37.0 C 60 16 126/66 12/29/20 07:03 75 18 95 12/29/20 06:13 73 12/29/20 03:57 36.6 C 83 18 126/67 98 12/29/20 01:15 64 18 97 12/28/20 23:30 36.8 C 79 18 111/70 95 12/28/20 19:05 36.5 C 106 H 19 122/72 95 12/28/20 18:58 98 H 18 97 12/28/20 15:25 37.6 C H 94 H 19 108/62 96 12/28/20 13:13 80 18 97 12/28/20 11:17 36.9 C 89 19 120/66 95 Cardiovascular + regular rate Respiratory + respiratory effort normal Pre-Sedation Airway Assessment Smoking Status: Former smoker Hx Sleep Apnea: No Short, Thick Neck: No Thyromental Distance: > or= 3.5 Finger Breadths Oral Cavity: + WNL Mallampati Class: I ASA: ASA3 NPO Status Date of Last Intake of Fluids: 12/28/20 Time of Last Intake of Fluids: 22:00 Date of Last Intake of Solid Food: 12/28/20 Time of Last Intake of Solid Foods: 22:00 Procedure Planning Contraindications for Sedation: none Current Medications Reviewed: Yes Notes The planned sedation has been discussed with the patient. Informed Consent was obtained. I have identified the patient, determined the appropriateness of sedation and have assessed the patient immediately prior to the procedure. All medicine(s) and interventions are by my order.
[2020-12-29] MEDS ORDERED: SODIUM CHLORIDE 0.9% INJ 10 ML VIAL ONE (09:46)
[2020-12-29] MEDS ORDERED: oxyCODONE HCL IR 5 MG TAB (IMMEDIATE RELEASE) PO PRN (10:05)
--- NOTE | 2020-12-29 10:10 | Electrophysiology Report ---
Date of Service December 29, 2020 Electrophysiology Procedure Electrophysiology Procedure Report Procedure performed: Implantation of dual-chamber permanent pacemaker Staff education intern: Raymundo Barbosa MD Indication: The patient is a 75-year-old gentleman with a history of paroxysmal atrial fibrillation. He was noted to have a series of 8-second periods of asystole while on telemetry. This represented both sinus arrest and an element of AV node disease. Based on his need for more aggressive medical treatment he was felt to be a good candidate for permanent pacemaker due to symptomatic nonreversible AV node dysfunction. Dual-chamber device was selected as he is currently in sinus rhythm and wish to maintain AV synchrony. Procedure in detail: The patient was informed of the risks benefits and alternatives to the intended procedure and she wished to proceed. He was taken to the electrophysiology suite in a fasting state. A preoperative antibiotic had been administered. The patient was monitored electrocardiographically throughout today's procedure and conscious sedation was administered per protocol. The right upper pectoral area is prepped and draped in usual sterile fashion. This area was anesthetized using subcutaneous administration of a xylocaine solution. An incision was made at this site and carried down to the prepectoralis fascia using sharp dissection. Electrocautery was also employed for dissection as well as for hemostasis. A device pocket was fashioned tissues above the pectoralis muscle. Subsequent to this maneuver the left axillary vein was accessed using modified Seldinger technique. Sheaths were placed over guidewires at this site and used to facilitate passage of the pacing leads to the respective chambers under fluoroscopic guidance. This included right atrial and right ventricular leads. Adequate sensing and threshold parameters were obtained prior to Active fixation of the leads to the endocardial surface. The proximal portion leads were then sutured the prepectoral fascia using nonabsorbable suture. The device pocket was irrigated with antibiotic solution. The leads were then attached to the device. The device and leads were then placed in the pocket and pocket was closed in 3 layers of absorbable suture. Steri-Strips and sterile dressing were applied. The device was tested noninvasively prior to conclusion the procedure. The patient tolerated procedure well there no immediate complications. Equipment used: New pulse generator: Inner Layer Scrubber Tender [employer]resa. Model number: [id number] serial number [id number] Right atrial lead: Inner Layer Scrubber Tender Med[employer] Card. Model number: 5076 serial number [id number] Right ventricular lead: Inner Layer Scrubber Tender [employer] Card. Model number: 5076 serial number [id number] Measured data: Right atrial lead: P waves measured 1.6 millivolts. Pacing threshold 1.1 V at 0.5 ms with a pacing impedance of 648 ohms Right ventricular lead: R waves measured 11.1 mV. Pacing threshold was 0.4 V at 0.5 ms with a pacing impedance of 913 ohms Impression: Successful implantation of dual-chamber permanent pacemaker [facility] Electrophysiology codes Pacing Procedure 1: Pacin Insert/Replace Pacer A & V PG Moderate Sedation Codes Moderate Sedation Codes Procedure 1: Sedation/Anesthesia: 70754 Mod Sedation by the same physician;Init15 Min Child Age 5 & Up Procedure 2: Sedation/Anesthesia: 73759 Mod Sedation by the same physician; Ea [id number] Minutes
[2020-12-29] MEDS: CALCIUM 600MG + VIT D 400 IU TAB PO SCH (11:18)
[2020-12-29] MEDS: CHLORHEXIDINE GLUCONATE 0.12% 480 ML MT SCH (11:19)
[2020-12-29] MEDS: TOCOPHERYL, DL-ALPHA 100 UNITS CAP PO SCH (11:19)
[2020-12-29] MEDS: DOXYCYCLINE HYCLATE 100 MG CAP PO SCH (11:20)
[2020-12-29] MEDS: FLUTICASONE PROPIONATE NA SPR 16 GM BTL SCH (11:21)
[2020-12-29] MEDS: GLUCOSAMINE SULFATE 500 MG CAP PO SCH (11:22)
[2020-12-29] MEDS: FOLIC ACID 1 MG TAB PO SCH (11:22)
[2020-12-29] MEDS: SPIRONOLACTONE 25 MG TAB PO SCH (11:23)
[2020-12-29] MEDS: guaiFENesin 600 MG TABCR PO SCH (11:23)
[2020-12-29] MEDS: PANTOprazole 40 MG TAB PO SCH (11:23)
[2020-12-29] MEDS: PENTOXIFYLLINE 400MG EXT REL TAB PO SCH (11:23)
[2020-12-29] MEDS: TORSEMIDE 10 MG TAB PO SCH (11:25)
[2020-12-29] MEDS: cefTRIAXone SODIUM 2,000 MG in DEXTROSE 5% 50 ML IV SCH (11:26)
[2020-12-29] MEDS: LENALIDOMIDE 10 MG PO SCH (11:27)
--- NOTE | 2020-12-29 12:03 | Cardiology Progress Note ---
Date of Service December 29, 2020 Assessment & Plan (1) Tachy-holly syndrome: (2) URI (upper respiratory infection): (3) PAF (paroxysmal atrial fibrillation): Plan: Admitted with a upper respiratory infection and peripheral edema, found to have Tachy-Holly Syndrome with PAF Status post December 29, 2020 successful implantation of dual-chamber permanent Medtronic pacemaker by Dr. Raymundo Barbosa Resume metoprolol. Resume Eliquis anticoagulation when OK with Electrophysiology Outpatient cardiology follow-up with Dr. Beltran Admission and Anticipated Discharge Date Admission Date: December 27, 2020 Supervising Physician Co-Signing Physician Notes I have seen and evaluated the patient. I reviewed the medical record and discussed the case with Mr. Glaser. Patient had his pacemaker implant this morning. Things went well. He is pending discharge. I have arranged follow-up through our device clinic next week. He also has a future appointment with myself which she will keep. Subjective Status post implantation of a dual-chamber permanent Medtronic pacemaker earlier this morning. No complaints. No concerns. No pleuritic chest pain. No shortness of breath. Stable edema. Telemetry reviewed prior to pacemaker implantation, demonstrating sinus with a first degree AV block, PAC's, and PAF. Telemetry post pacemaker implantation reveals intermittent atrial pacing with PAF. Review of Systems Review of Systems: Complete ROS is otherwise as stated, negative, or noncontributory. Physical Exam Physical Exam: General: NAD. HENT: Normocephalic. Atraumatic. Eyes: PER. Conjunctiva pink, sclera clear. Neck: No overt JVD. Chest: Right subclavian dressing was not removed. Heart: Irregular. Lungs: Decreased. Clear. Extremities: Chronic distal edema. No clubbing. No cyanosis. Limited neurological examination is without focal deficits. Results & Data ([facility]) Vital Signs (Past 12 Hours) Vital Signs Temp Pulse Pulse Pulse Resp BP BP 12/29/20 10:45 36.8 C 79 18 132/73 12/29/20 10:30 70 16 122/72 12/29/20 10:14 86 16 115/78 12/29/20 08:45 87 16 140/93 12/29/20 08:00 37.0 C 66 60 16 126/66 12/29/20 07:03 75 18 07/16/21 06:13 73 12/29/20 03:57 36.6 C 83 18 126/67 12/29/20 01:15 64 18 Pulse Ox 12/29/20 10:45 96 12/29/20 10:30 92 12/29/20 10:14 94 12/29/20 08:45 94 12/29/20 08:00 12/29/20 07:03 95 12/29/20 06:13 12/29/20 03:57 98 12/29/20 01:15 97 Laboratory Results Laboratory Results - last 24 hr 12/28/20 12/28/20 12/28/20 15:30 16:12 20:00 WBC RBC Hgb Hct MCV MCH MCHC RDW Std Deviation RDW Coeff of Jim Plt Count Immature Gran % (Auto) Neut % (Auto) Lymph % (Auto) [place] % (Auto) Eos % (Auto) Baso % (Auto) Neut # (Auto) Lymph # (Auto) [place] # (Auto) Eos # (Auto) Baso # (Auto) Immature Gran # (Auto) Platelet Estimate Ovalocytes Sodium Potassium Chloride Carbon Dioxide Anion Gap BUN Creatinine Est Cr Clr Drug Dosing Est GFR ( Amer) Est GFR (Non-Af Amer) BUN/Creatinine Ratio Glucose POC Glucose 88 237 H Calcium Magnesium Total Bilirubin AST ALT Alkaline Phosphatase Total Protein Albumin Globulin Albumin/Globulin Ratio Influ A Molecular Assay Negative Influ B Molecular Assay Negative 12/28/20 12/29/20 12/29/20 23:34 04:02 06:15 WBC 3.02 L RBC 4.28 L Hgb 13.9 L Hct 42.3 MCV 98.8 MCH 32.5 MCHC 32.9 RDW Std Deviation 55.5 H RDW Coeff of Jim 15.3 H Plt Count 80 L Immature Gran % (Auto) 0.0 Neut % (Auto) 82.2 Lymph % (Auto) 11.9 [place] % (Auto) 5.6 Eos % (Auto) 0.0 Baso % (Auto) 0.3 Neut # (Auto) 2.48 Lymph # (Auto) 0.36 L [place] # (Auto) 0.17 Eos # (Auto) 0.00 Baso # (Auto) 0.01 Immature Gran # (Auto) 0.00 Platelet Estimate Decreased L Ovalocytes 1+ Sodium Potassium Chloride Carbon Dioxide Anion Gap BUN Creatinine Est Cr Clr Drug Dosing Est GFR ( Amer) Est GFR (Non-Af Amer) BUN/Creatinine Ratio Glucose POC Glucose 235 H 160 H Calcium Magnesium Total Bilirubin AST ALT Alkaline Phosphatase Total Protein Albumin Globulin Albumin/Globulin Ratio Influ A Molecular Assay Influ B Molecular Assay 12/29/20 12/29/20 12/29/20 06:15 07:16 11:18 WBC RBC Hgb Hct MCV MCH MCHC RDW Std Deviation RDW Coeff of Jim Plt Count Immature Gran % (Auto) Neut % (Auto) Lymph % (Auto) [place] % (Auto) Eos % (Auto) Baso % (Auto) Neut # (Auto) Lymph # (Auto) [place] # (Auto) Eos # (Auto) Baso # (Auto) Immature Gran # (Auto) Platelet Estimate Ovalocytes Sodium 134 L Potassium 3.7 Chloride 102 Carbon Dioxide 29 Anion Gap 3.0 BUN 18 Creatinine 0.93 Est Cr Clr Drug Dosing 81.5 Est GFR ( Amer) 93.4 Est GFR (Non-Af Amer) 80.6 BUN/Creatinine Ratio 19.3 Glucose 180 H POC Glucose 186 H 205 H Calcium 8.4 L Magnesium 2.6 H Total Bilirubin 0.7 AST 27 ALT 35 Alkaline Phosphatase 173 H Total Protein 7.0 Albumin 3.5 Globulin 3.5 Albumin/Globulin Ratio 1.0 Influ A Molecular Assay Influ B Molecular Assay
--- NOTE | 2020-12-29 12:52 | Pharmacy Report ---
Pharmacy Glycemic Short Note 2 - Date of Service December 29, 2020 - Glycemic Short BSG Results (Last 24 hours): 12/28/20 12/28/20 12/28/20 16:12 20:00 23:34 Glucose POC Glucose 88 237 H 235 H 12/29/20 12/29/20 12/29/20 04:02 06:15 07:16 Glucose 180 H POC Glucose 160 H 186 H 12/29/20 11:18 Glucose POC Glucose 205 H OUTPATIENT ANTIDIABETIC REGIMEN: * Metformin 1gm PO daily * A1c = 6.8% 12/27/20 ASSESSMENT: 12/29 * Patient was started on Prednisone 50mg Q 8 hrs x 3 doses yesterday due to today's planned ICD placement and h/o dye allergy * Steroid did lead to moderate hyperglycemia with BSGs climbing into the mid- 200s * BSGs did trend down into the 180-210 range with additional Lantus and correctional Novolog * Will decrease Lantus dose this evening as effects of Prednisone are likely to wear off in the next 24 hours. Baseline basal needs are likely low w/o steroid on board. * Will continue "severe" stress doses of Novolog today, and covert back to "moderate" stress doses tomorrow AM 12/28 * Type 2 diabetic admitted for upper resp track infection * BSGs mildly elevated with Novolog CF/CR only - will adjust these parameters to allow for greater mealtime doses * Fasting BSGs have been elevated - will start low dose basal ("mild" stress weight based regimen) PLAN FOR INPATIENT GLYCEMIC CONTROL: * Hold outpatient oral diabetes medications (metformin) * Basal insulin * Lantus 15 units SQ x 1 this AM, then BID per scale starting this PM: 0 units if less than 140, 8 units if 140-200, 12 units if greater than 200 * Bolus insulin * NovoLog per scale ACHS or Q6hrs while NPO * Goal Range: Low 110 mg/dL - High 140 mg/dL * Correction Factor: 18 mg/dL/unit today, convert to 25mg/dL/unit tomorrow AM * Nutritional / Prandial insulin per carb ratio of 1 unit per 6 grams CHO consumed today, then convert to 1 unit per 8 grams CHO consumed tomorrow PLAN FOR DISCHARGE: * May resume metformin on discharge if no contraindications present, A1c 6.8% at goal
--- NOTE | 2020-12-29 13:55 | Hospitalist Progress Note ---
Date of Service December 29, 2020 Assessment & Plan (1) URI (upper respiratory infection): Plan: 75 y/o male with Mult Myeloma, P A fib on Eliquis, AV stenosis, DM, Hx of DVT presenting Acute Bronchitis, Sinusitis -- CXR: no PNA COVID negative --T-max 39.3 Repeat chest x-ray no pneumonia Blood culture: Pending -- given Ceftriaxone and Doxycycline x 2 days Nebs Mucinex Flonase --Clinically improved overall weaned off Oxygen supplement -- d/c on Doxycycline x 5 days, Nebs, Mucinex, Flonase Tachy Teofilo Syndrome -- telemetry revealed 2 episodes of sinus pause, 8 sec each -- asymptomatic -- held Metoprolol [employer] Supervisor consulted Dr. Beltran and Dr. Barbosa -- s/p Dual Chamber Pacemaker placement 12/29/20 -- per Cardio, resume Metoprolol, hold Eliquis and resume 01/01/21 -- ff up with Cardiology as outpatient Lower Extremity Edema -- chronic -- continue Spironolactone on Eliquis for DVT Multiple Myeloma -- on Revlimid P A fib AV stenosis, history of AVR -- Metoprolol History of DVT -- on Eliquis DM 2 -- ISS Disposition d/c home ff up with PCP, [employer] Supervisor plan of care discussed with patient in detail and at length all questions answered he is understanding, agreeable, comfortable with the plan of care Admission and Anticipated Discharge Date Admission Date: December 27, 2020 Subjective ff up for Acute Bronchitis, Tachy-Teofilo syndrome, etc seen resting in bed, comfortable states he feels much better overall breathing is much better, less cough, nasal symptoms resolved, no dyspnea minimal discomfor on the PM site no other symptoms states he is ready and would like to be discharged today Review of Systems Review of Systems: all noted, negative except above Physical Exam Physical Exam: General- oriented x 3, not in distress, speaks in sentences with no effort or accessory muscle use Eyes- anicteric Neck- no JVD Lungs- mild rhonchi at the bases, good air entry, no wheezing Heart- normal rate, regular rhythm; no murmurs PM site: dressing in place, no edema, bleeding Abdomen- normal bowel sounds, nondistended, soft, nontender Extremities- no pretibial edema, no calf tenderness Neuro- alert, oriented x 3; no gross focal neurologic deficits Skin- warm & dry Results & Data Results & Data ([facility]) Vital Signs (Past 12 Hours) Vital Signs Temp Pulse Pulse Pulse Pulse Pulse Pulse 12/29/20 13:01 104 H 12/29/20 11:20 123 H 118 H 79 12/29/20 10:45 36.8 C 79 12/29/20 10:30 70 12/29/20 10:14 86 12/29/20 08:45 87 12/29/20 08:00 37.0 C 66 60 12/29/20 07:03 75 12/29/20 06:13 73 12/29/20 03:57 36.6 C 83 Resp Resp Resp Resp BP BP Pulse Ox 12/29/20 13:01 18 95 12/29/20 11:20 18 18 18 12/29/20 10:45 18 132/73 96 12/29/20 10:30 16 122/72 92 12/29/20 10:14 16 115/78 94 12/29/20 08:45 16 140/93 94 12/29/20 08:00 16 126/66 12/29/20 07:03 18 95 12/29/20 06:13 12/29/20 03:57 18 126/67 98 Pulse Ox Pulse Ox Pulse Ox 12/29/20 13:01 12/29/20 11:20 94 93 96 12/29/20 10:45 12/29/20 10:30 12/29/20 10:14 12/29/20 08:45 12/29/20 08:00 12/29/20 07:03 12/29/20 06:13 12/29/20 03:57 all noted and reviewed including below
--- NOTE | 2020-12-29 14:43 | XRay Report ---
XR chest 2V PA/lateral HISTORY: Interval pacemaker placement. COMPARISON: Chest 12/28/2020. FINDINGS: Interval placement of a right-sided dual-chamber pacemaker. The leads appear intact. No pne umothorax. No pleural effusions. There is an aortic valve prosthesis and poststernotomy changes. The heart is normal in size. Emphysema is noted. There are old, healed left-sided rib fractures. Mild int erstitial thickening at the lung bases. This is likely chronic. IMPRESSION: 1. Interval placement of a right-sided dual-chamber pacemaker. No pneumothorax. 2. Emphysema. ACT 112: Negative or not required by law. Electronically signed by: Ghassan Gay M.D. 12/29/2020 2:42 PM
--- NOTE | 2020-12-29 17:03 | Discharge Summary ---
Date of Service December 29, 2020 Admission HPI Per Admitting Provider HISTORY OF PRESENT ILLNESS: A 75-year-old male with past medical history significant for type 2 diabetes, history of pancreatic cancer, status post Whipple procedure in 2009, followed by chemotherapy and radiation therapy, history of prostate cancer treated with Lupron injections, history of paroxysmal atrial fibrillation, history of COPD, aortic valve stenosis, PVD, obesity, autoimmune hemolytic anemia, multiple myeloma, hx of postoperative anemia due to acute blood loss, selective deficiency of igm and iga, status post aortic valve replacement with prosthetic valve, who presents with cough and runny nose for the last 4 days which is not getting better. Also he does have lower extremity edema, which is slightly worse. Currently, resting comfortably and hemodynamically stable. Denies any chest pain, no shortness of breath other than his usual, could not lie flat. No headache, no blurred visions, no sore throat. Appetite is okay. No difficulty swallowing. No nausea, no abdominal pain. Normal bowel and bladder movements. No rash. ALLERGIES: TO NSAIDS, IODINE, AND IODINE-CONTAINING PRODUCTS, ASPIRIN. PAST MEDICAL HISTORY: As mentioned above. PAST SURGICAL HISTORY: Endoscopy, colonoscopy, EGD with endoscopic ultrasound, Whipple's procedure, bioprosthetic aortic valve replacement. MEDICATIONS: The patient is on Tylenol 500 mg p.o. q. 4 hours p.r.n., Eliquis 5 mg p.o. b.i.d., calcium plus vitamin D one tablet b.i.d., chlorhexidine gluconate 15 mL p.o. b.i.d., folic acid 1 mg p.o. daily, glucosamine 1000 mg p.o. daily, Revlimid 10 mg p.o. daily, metformin 1000 mg p.o. daily, m etoclopramide 10 mg p.o. daily p.r.n., metoprolol tartrate 25 mg p.o. b.i.d., omeprazole 20 mg p.o. daily, pentoxifylline 400 mg p.o. b.i.d., spironolactone 25 mg p.o. daily, torsemide 20 mg p.o. daily, tramadol 50 mg p.o. daily, vitamin E 400 units p.o. b.i.d. FAMILY HISTORY: Significant for brother has colon cancer, at age 60; father had lung cancer; mother had colon cancer at age of 86, diabetes, stroke; sister has diabetes; and sister, lung cancer. SOCIAL HISTORY: , lives with his . Former smoker, quit in 1971. Smoked about 1 pack for 10 years, quit alcohol in 2001. Used to drink about 6 packs 1 or 2 days a week, on the weekends before. No drug use. REVIEW OF SYSTEMS: As per HPI. Rest of the review of systems is negative. Admission Exam Per Admitting Provider PHYSICAL EXAMINATION: GENERAL: The patient is obese, not in acute distress. VITAL SIGNS: Temperature 37.1, pulse 86, respiratory rate 18, blood pressure 143/75, oxygen 95% on room air. HEENT: Pupils equal, round and reactive to light. Oral mucosa moist. NECK: No JVD or neck masses. CARDIOVASCULAR: S1 and S2 heard. Regular rate and rhythm. No murmur, no gallop. RESPIRATORY SYSTEM: Normal AP diameter. No accessory muscle use. No wheezing, no crackles. ABDOMEN: Soft, bowel sounds present, nontender, no distention. CENTRAL NERVOUS SYSTEM: Cranial nerves II-XII grossly intact, nonfocal. EXTREMITIES: Lower extremity edema present, no erythema seen. Principal Diagnosis Acute bronchitis Tachybradycardia syndrome Discharge Exam General- oriented x 3, not in distress, speaks in sentences with no effort or accessory muscle use Eyes- anicteric Neck- no JVD Lungs- mild rhonchi at the bases, good air entry, no wheezing Heart- normal rate, regular rhythm; no murmurs PM site: dressing in place, no edema, bleeding Abdomen- normal bowel sounds, nondistended, soft, nontender Extremities- no pretibial edema, no calf tenderness Neuro- alert, oriented x 3; no gross focal neurologic deficits Skin- warm & dry Discharge Data Allergies Allergy/AdvReac Type Severity Reaction Status Date / Time aspirin Allergy Severe HIVES Unverified 01/20/19 14:42 NSAIDS (Non-Steroidal Allergy Severe HIVES Unverified 01/20/19 14:42 Anti-Inflamma Iodine and Iodide Containing AdvReac Mild Verified 01/20/19 14:42 Produc Consultations 12/27/20 08:00 Consult Cardiology Routine 12/28/20 09:00 Consult Cardiology Routine Procedures Performed Operation Date: 12/29/20 09:00 Actual Procedures p Pacer with A/V Leads (Dual) - Micheal Barbosa MD Ordered Studies 12/29/20 06:45 CL Cath Imgs for PACS use only DAILY Hospital Course (1) URI (upper respiratory infection): 75 y/o male with Mult Myeloma, P A fib on Eliquis, AV stenosis, DM, Hx of DVT presenting with cough. Acute Bronchitis, Sinusitis -- CXR: no PNA COVID negative --T-max 39.3 Repeat chest x-ray no pneumonia Blood culture: Pending -- given Ceftriaxone and Doxycycline x 2 days Nebs Mucinex Flonase --Clinically improved overall weaned off Oxygen supplement -- d/c on Doxycycline x 5 days, Nebs including levalbuterol and ipratropium 3 times daily and as needed, Mucinex, Flonase --Follow-up with PCP in 1 week Tachy Teofilo Syndrome -- telemetry revealed 2 episodes of sinus pause, 8 sec each -- asymptomatic -- held Metoprolol Purchasing Engineer consulted Dr. Beltran and Dr. Barbosa -- s/p Dual Chamber Pacemaker placement 12/29/20 -- per Cardio, resume Metoprolol, hold Eliquis for 2 days and resume 01/01/21 -- ff up with Cardiology as outpatient Lower Extremity Edema -- chronic -- continue Spironolactone on Eliquis for DVT Multiple Myeloma -- on Revlimid P A fib AV stenosis, history of AVR -- Metoprolol History of DVT -- on Eliquis DM 2 -- ISS Disposition d/c home ff up with PCP, Purchasing Engineer plan of care discussed with patient in detail and at length all questions answered he is understanding, agreeable, comfortable with the plan of care Total Time Total Time Spent Total Time Spent (In Minutes): 55 minutes Discharge Plan Discharge Items Patient Disposition: Home - Self-Care Reason For Visit: SINUS CONGESTION / CHF? Discharge Diagnosis: ACUTE BRONCHITIS, SINUSITIS TACHYCARDIA-BRADYCARDIA SYNDROME, STATUS POST PACEMAKER PLACEMENT Activity: As commented below Activity Comment: Resume activity gradually as tolerated Lifting Comment: No lifting right arm above shoulder or behind neck for 4 weeks Bathing: Keep incision dry Bathing Comment: Keep wound dry and steri-strip intact until f/u Exercise/Sports: Wait until after follow-up appointment Driving/Machine Use: No driving until reevaluated and allowed by primary care physician Non-emergency contact: Primary Care Provider Call non-emergency contact if: you have any medication questions, your symptoms worsen, your pain is not controlled, your pain is worsening, your pain is unusual for you, your pain is concerning for you and you have a fever Follow-up/Referrals: Micheal Barbosa MD [Physician] - Lg Kim PA-C [Primary Care Provider] - (Date & Time 01/02/2021 11:00 AM Provider Yahaira Neal MD Department [facility] ) Albert Beltran, [Purchasing Engineer] - Diet: Heart Healthy Addtl Attending Provider Instructions: Please review new medication list and follow instructions carefully. HOLD Eliquis for now and RESUME on Friday January 01, 2021. Your new medications include: Doxycycline-antibiotic for bronchitis and sinusitis Levalbuterol nebulizer-for bronchitis Mucinex-to loosen secretions Flonase- for nasal congestion Call primary care physician or return to the ER immediately if with worsening of symptoms, including shortness of breath, cough, fevers or chills, sputum production, Pain, swelling, bleeding on the pacemaker site. Follow-up with primary care physician as outlined above. Follow-up with strip presser Dr. Beltran in 1 week. Please call his office for an appointment. Contact information noted above. ACTIVITY RECOMMENDATIONS: * Do not raise affected arm over head for 4 weeks. SPECIAL CARE INSTRUCTIONS: * If bleeding occurs, apply direct pressure to area for 5 minutes. * Call your doctor if you have severe pain, fever, drainage or bleeding at site. * Keep dressing on and dry for 48 hours then remove. * Keep any scheduled doctor's appointment. * Implant Card - hand held device with website information given. SKIN IRRITATION: * You may experience some redness and/or swelling in the area where radiation was administered. If any skin irritation occurs, please contact your family physician. FOLLOW UP VISIT: Keep any scheduled doctor appointments. Pending Studies at Discharge: No Stand-Alone Forms: [employer], Smoking Cessation Medications and DC Order Prescriptions: New doxycycline hyclate 100 mg Capsule 100 mg PO BID Qty: 10 RF: 0 ipratropium bromide 0.02 % Solution 0.5 mg inhalation TID 7 Days Qty: 52.5 RF: 2 levalbuterol HCl 1.25 mg/0.5 mL Solution For Nebulization 1.25 mg inhalation TID 7 Days Qty: 10.5 RF: 0 guaifenesin [Mucinex] 600 mg Tablet Extended Release 12hr 1,200 mg PO Q12 Qty: 14 RF: 0 fluticasone propionate 50 mcg/actuation [place],Suspension 2 spray NA DAILY Qty: 16 RF: 1 Continued omeprazole 20 mg capsule,delayed release(DR/EC) 20 mg PO DAILY RF: 0 metoclopramide HCl 10 mg tablet 10 mg PO DAILY PRN (Reason: Indigestion) RF: 0 metoprolol tartrate 25 mg tablet 25 mg PO BID RF: 0 vitamin E 200 unit Capsule 400 unit PO BID RF: 0 torsemide 10 mg tablet 20 mg PO DAILY RF: 0 glucosamine sulfate [Glucosamine] 500 mg Tablet 1,000 mg PO DAILY RF: 0 tramadol 50 mg Tablet 50 mg PO Q6H PRN (Reason: Pain) RF: 0 acetaminophen [Tylenol Extra Strength] 500 mg Tablet 500 mg PO Q4H MDD 3 GRAMS/24 HOURS PRN (Reason: FEVER/PAIN) RF: 0 spironolactone 25 mg Tablet 25 mg PO DAILY RF: 0 pentoxifylline 400 mg Tablet Extended Release 400 mg PO BID RF: 0 folic acid 1 mg Tablet 1 mg PO DAILY RF: 0 metformin 500 mg Tablet Extended Release 24 Hr 1,000 mg PO DAILY RF: 0 chlorhexidine gluconate 0.12 % mouthwash 15 ml PO BID RF: 0 Revlimid 10 mg Capsule 10 mg PO DAILY RF: 0 calcium carb and citrate-vitD3 [Citracal-D3 Slow Release] 600 mg-12.5 mcg (500 unit) Tablet Extended Release 1 tab PO DAILY RF: 0 Eliquis 5 mg Tablet 5 mg PO BID RF: 0 Discharge Orders: Discharge Order (Routine); Ordered 12/29/20 Ordered By: Tenzin Terrazas/Other Patient Handouts: A1C, Living with a Pacemaker, Managing Type 2 Diabetes, Discharge Instructions for ... Admission Data Admit Date/Time: 12/27/20 01:52 Attending Provider: Tenzin Beaulieu Admit Provider: Taurus Santos Primary Care Provider: Kim,Lg L. Other Providers: Alber Perez Angel Chan ; Rosendo Braden ; Alex Frausto ; Albert Beltran ; Gael Glaser ; Elizabeth Watson ; Kassandra Butterfield ; Lela Doshi ; Timmy Carey ; Micheal Barbosa Other Interventions: Discharge Summary Assessment (RN) Last Done: 12/29/20 16:30
[2020-12-29] MEDS ORDERED: ceFAZolin 1000MG 1,000 MG/7.5 ML SYR IV SCH (17:15)
[2020-12-30] MEDS ORDERED: INSULIN ASPART 100 UNITS/ML 3 ML PEN SC SCH (07:30)
== END 2020-12-29 17:34 | disposition home or self-care (01) | DRG 982 ==
LOC: ED 00:31 → 2W 01:52 → 2E 13:24